=== PATIENT | male | born 1950 | race African-American/Black ===

== ENCOUNTER 2016-09-15 21:16 | Inpatient (IN) | payer MEDICARE, OTHER ==
--- NOTE | ~2016-09-15 | HP ---
History And Physical [place] [id number] [place]. [address] NAME: RASHAD KOENIG : 48 STATUS : ADM IN [facility]#: [id number] AGE: 66 ADM/REG DATE : 09/16/16 MR#: [id number] REPORT SERV DATE: 09/16/16 DICTATED BY: AVIVA FRIAS DATE: 09/16/16 REPORT STATUS : Draft TRANSCRIBED BY: MODL DATE: 09/16/16 DATE OF ADMISSION: 09/16/2016 CHIEF COMPLAINT: Fast heart rate. HISTORY OF PRESENT ILLNESS: The patient is a 66-year-old male, unfortunately with a history of metastatic cholangiocarcinoma with resultant DVT, followed by Dr. Cb Sharma, who presents after having multiple episodes of fever and tachycardia over the last week, decreased activity. The patient has had extensive workup at most recent hospitalization with ID and Hem-Onc. Also, had lactate elevation of 3.3 and procalcitonin of 1.7 last time, who presents in similar episode of tachycardic fever, but does have new leukocytosis on labs, increase lactate elevation and procalcitonin elevations. Symptoms of recurrent episode have been progressively going on for the last week. Symptoms have been constant, moderate severity. The patient did have sharp-type abdominal pain and chest pain that improved after drinking Sprite. It was nonradiating. Has had increased abdominal distention and decreased bowel movements over the last two days. The patient has had fevers, chills, and mild nausea, but no vomiting. Increased weakness. Decreased p.o. intake. Symptoms worsened with exertion and relieved only by mild rest, but overall, reports that if will let him, he would sleep probably 23 hours of the day. Symptoms are still currently present. Fever was noted as high as 103 at home and heart rate as high as 140s. REVIEW OF SYSTEMS: For additional review of systems, GENERAL: Positive for weakness, fevers, and chills. EYES: No eye pain or visual changes. ENT: No ear pain or congestion. NEURO: No headache. Does have seizure history. SKIN: No rashes or bruising. RESPIRATORY: No shortness of breath or dyspnea, but the patient is not doing much exertion. No cough. CV: Mild chest pain versus epigastric pain and tachycardia. GI: Positive for nausea. No vomiting. Does have constipation and abdominal distention. : No dysuria or hematuria. MUSCULOSKELETAL: No myalgias or arthralgias above baseline. ENDO: Increased fatigue. No polyuria. HEME: No bleeding or bruising. IMMUNOLOGIC: No rhinorrhea. PSYCH: No anxiety or confusion. PAST MEDICAL HISTORY: Metastatic cholangiocarcinoma, followed by Dr. Sharma; chronic anemia; seizures; DVT, on Eliquis. SURGICAL HISTORY: Gallbladder removal, colonoscopy, cholecystectomy. SOCIAL HISTORY: . Accompanied by his family members. No smoking, alcohol, or History And Physical [address] [address] NAME: RASHAD KOENIG : [birth year] STATUS : ADM IN [facility]#: [id number] AGE: 66 ADM/REG DATE : 09/16/16 MR#: [id number] REPORT SERV DATE: 09/16/16 DICTATED BY: AVIVA FRIAS DATE: 09/16/16 REPORT STATUS : Draft TRANSCRIBED BY: MODFlori DATE: 09/16/16 illicits. FAMILY HISTORY: Noted for stroke. ALLERGIES: NO KNOWN DRUG ALLERGIES. MEDICATIONS: Tylenol, Eliquis, [place], Zofran, Percocet, phenobarbital, Dilantin, Compazine, Ultram, trospium, metoprolol. EKG: Rate of 120, sinus tachycardia, QTc of 438. PHYSICAL EXAMINATION: VITAL SIGNS: The patient's blood pressure 107/59; temperature 97.2, at current, increased to 101; pulse 122, down to 107; respirations 16; O2 saturations 97% on room air. GENERAL: Elderly, frail, but smiling. EYES: No scleral icterus. EOMI. ENT: Nares patent. Moist mucous membranes. RESPIRATORY: Clear upper lung kaye. Mildly decreased lower lung kaye. CV: Tachycardic. No rubs. Cap refill less than 2 seconds. GI: Large, distended, tympanic with dullness to majority of right side of abdominal wall and tympanic on the left side. No reproducible pain at this time. : Deferred. MUSCULOSKELETAL: Moves all extremities, but does have atrophy of muscle groups. SKIN: Warm and dry. HEME: No bleeding. NEURO: Alert and oriented. No asterixis. 5/5 hand strength, but leg strength approximately 4/5. PSYCH: Appropriate mood and affect. LABORATORY DATA: BMP; sodium 133, potassium 4.0, chloride 95, bicarb 24, BUN and creatinine 17 and 0.98, glucose 158, calcium 8.5. Troponin negative. Magnesium 1.9. WBC count 30.3, previously 9.4. H and H 8.8 and 27.4, previously 7 and 21.1. Platelets 317. INR 1.6, bands 8, lactate 4.3. Urinalysis, negative leukocyte esterase and nitrites. Procalcitonin 3.07. LFTs, AST and ALT within normal limits. Dilantin 8.7, phenobarbital 14.9. T bili 0.4. CT abdomen and pelvis, progressing liver metastatic disease with poorly defined up to 14.8 x 8.3 cm mass, right lobe compared to estimated 10.5 x [address] Increasing hepatomegaly, increasing metastatic tumor nodules measuring up to 1.9 cm diameter extending beyond lower liver margin along the lateral aspect of the medial segment left lobe and right lobe of the liver. Indeterminate 6-mm right middle lobe pulmonary nodule. Prostate enlargement, probable BPH. Recommend correlation with PSA levels. ASSESSMENT AND PLAN: 1. Systemic inflammatory response syndrome. 2. Abdominal pain. 3. Weakness. 4. Lactic acidosis. 5. Cholangiocarcinoma with liver metastasis. History And Physical [address] [address] NAME: RASHAD KOENIG : [birth year] STATUS : ADM IN [facility]#: [id number] AGE: 66 ADM/REG DATE : 09/16/16 MR#: [id number] REPORT SERV DATE: 09/16/16 DICTATED BY: AVIVA FRIAS DATE: 09/16/16 REPORT STATUS : Draft TRANSCRIBED BY: MODL DATE: 09/16/16 6. Seizure history. 7. Anemia. PLAN: 1. SIRS, recently diagnosed with tumor and fever. Per prior records with ID, changed cefepime to vancomycin and Zosyn. Does have new findings of leukocytosis up to 30,000, lactate 4.3, procalcitonin greater than 3 with positive fevers over 101. Cultures and sepsis order set initiated. We will treat infectious etiology until ruled out. Possible related to progressing underlying tumor. These findings were discussed with the patient and family at bedside. 2. Abdominal pain. Enlarging liver with increased constipation. Lactulose since the patient had not been evaluated in multiple days. Pain is resolved, but is still constipation and has distention. 3. Weakness. PT. 4. Lactic acidosis. Serial monitoring. Treat underlying SIRS. IV fluids. Does have abdominal pain. No signs or symptoms of acute incarceration or surgical abdomen at this time. Confirmed with ER doctor. No acute rebound, but we will continue to monitor closely. KUB in a.m. 5. Cholangiocarcinoma with enlarging liver metastasis. Hem-Onc evaluation. 6. Seizure history. On medications. 7. Anemia, currently improved from prior admission. Anticipate greater than two midnight inpatient stay. DDN/MODL Aviva Frias MD / [id number] CC: MD Jose Garcia II, III, D.O.
--- NOTE | ~2016-09-15 | IDS ---
Interim Discharge Summary [facility] [address] [place]. [address] NAME: RASHAD KOENIG : 48 STATUS : ADM IN PAT#: [id number] AGE: 66 ADM/REG DATE : 09/16/16 MR#: [id number] REPORT SERV DATE: 09/27/16 DICTATED BY: CONNIE QUACH II DATE: 09/26/16 REPORT STATUS : Draft TRANSCRIBED BY: MODL DATE: 09/26/16 ADMISSION DATE: 09/16/2016 DISCHARGE DATE: DATE OF INTERIM: 09/26/2016. INTERIM DIAGNOSES: 1. Systemic inflammatory response syndrome, likely secondary to tumor fever. 2. Metastatic cholangiocarcinoma, followed by Dr. Sharma. 3. History of deep vein thrombosis, on Eliquis. 4. Hypotension. 5. Lactic acidosis. 6. Hyperglycemia, steroid induced. 7. Hypoalbuminemia. 8. Severe protein-calorie malnutrition. 9. Seizure disorder. 10.Chronic anemia. 11.Lower extremity edema, likely third-spacing from hypoalbuminemia. CONSULTS: 1. Andrew Arriaga M.D. with Infectious Disease. 2. Cb Sharma M.D. with [facility]. BRIEF HISTORY OF PRESENT ILLNESS: The patient is a 66-year-old male with the above history, who presented to [facility] again due to tachycardia and fever. For detailed history and physical examination, please see Dr. Lizandro De La Rosa's note from 09/16/2016. HOSPITAL COURSE: On admission, the patient had a lactic acid of 4.3 and white blood cell count of 30. He continued to spike fevers up to almost 105 and associated tachycardia in the 150s. The patient was initially started on vancomycin and cefepime. Infectious Disease was consulted, and Dr. Chairez was initially seeing the patient. The urine was unremarkable on admission. Chest x-ray showed clear lungs. CT of abdomen and pelvis showed progressing liver metastatic disease with poorly defined 14.8 x 8 cm mass in the right lobe of the liver compared to estimated size of 10.5 x 7.[address] Also increasing hepatomegaly. Increasing metastatic tumor nodules measuring up to 1.9 cm extending beyond the liver margin along the lateral aspect of the medial segment, left lobe and right lobe of the liver. Despite broad-spectrum antibiotics, the patient continued to spike fevers and his procalcitonin trended up. On the , Dr. Chairez changed the patient's antibiotics to doxycycline, micafungin, and meropenem. This also did not produce any change in the patient's leukocytosis or recurrent fevers. Repeated urinalyses were normal and procalcitonin still high. On the , Dr. Arriaga ended up stopping all the patient's antibiotics. Dr. Sharma went ahead and tried the patient on prednisone to see if that improved his tumor fever; this had minimal effect and currently Dr. Sharma is considering starting the patient on Taxol this Monday. The patient has been off antibiotics since . Of note, yesterday the patient was hypotensive in the 80s, lactic acid had come up to about 3.5, and procalcitonin was rechecked and now up to 18, previously had slowly been Interim Discharge Summary [address] [address] NAME: RASHAD KOENIG : 48 STATUS : ADM IN [facility]#: [id number] AGE: 66 ADM/REG DATE : 09/16/16 MR#: [id number] REPORT SERV DATE: 09/27/16 DICTATED BY: CONNIE QUACH II DATE: 09/26/16 REPORT STATUS : Draft TRANSCRIBED BY: MODFlori DATE: 09/26/16 trending up; last checked on the , was 5.27. The patient has no symptoms abdominally and no new cough or respiratory symptoms. He had a Wallace catheter placed due to minimal urine output. Today, the patient's urine appeared somewhat turbid with lots of debris, so a urinalysis was sent which showed large leukocyte esterase, 62 white blood cells, and greater than 182 red blood cells. Previous urinalysis had been done on the and was normal. Given his lactic acid trends up to 4 today, he is more persistently tachycardic than he has been, procalcitonin markedly higher, and recent hypotension, I am inclined to start the patient on Zosyn until culture comes back negative. Otherwise, given the patient's lower extremity edema with a quite low BNP and hypoalbuminemia, instead of starting fluids we will try the patient on albumin. Otherwise given the patient's metastatic cholangio, according to the family, the patient had previously not wanted to do any more chemotherapy, however, after discussion with his and other family, he decided to try again. He was also considering a trial of immunotherapy in [place]. At this point, his physical status is fairly poor though he is ambulating with some assistance. Regardless, the patient's overall prognosis is likely extremely poor and is still full code. He would likely benefit from a conversation of prognosis and will likely end up needing hospice in the near future. Dr. Sharma was considering asking Palliative Care to get involved, so we will defer hospice conversation to Oncology. Otherwise, the patient remains on Eliquis for his history of DVT. Dr. Mcneal to take over the patient's care starting tomorrow. JEG/MODL Connie Quach II, MD / [id number] CC: MD Jose Garcia II, III, D.O.
--- NOTE | ~2016-09-15 | IDS ---
Interim Discharge Summary [facility] [address] [place]. [address] NAME: RASHAD KOENIG : 48 STATUS : ADM IN PAT#: [id number] AGE: 66 ADM/REG DATE : 09/16/16 MR#: [id number] REPORT SERV DATE: 10/03/16 DICTATED BY: KELSEY MCNEAL DATE: 10/03/16 REPORT STATUS : Draft TRANSCRIBED BY: MODL DATE: 10/03/16 ADMISSION DATE: 09/16/2016 DISCHARGE DATE: Interim summary covers dates 09/27/2016 through 10/03/2016. INITIAL CHIEF COMPLAINT ON ADMISSION: Fast heart rate. CURRENT HOSPITAL DIAGNOSES: 1. Metastatic cholangiocarcinoma. 2. Tumor fever with systemic inflammatory response syndrome. 3. History of deep vein thrombosis, on Eliquis. 4. Acute on chronic anemia due to chemotherapy. 5. Thrombocytopenia due to chemotherapy. 6. Weakness. 7. Goals of care. HOSPITAL COURSE: 1. Metastatic cholangiocarcinoma with elevated lactate. Per discussion with Oncology, they felt that elevated lactate is likely due to metabolism that is altered by liver metastases. The patient got Taxol on 09/28/2016 and then will be due again tomorrow to see if the tumor burden can be reduced to decrease the patient's significant tumor fever and systemic inflammatory response syndrome. Oncology is following along and plans to have a family meeting tomorrow with the patient and his to further address goals of care. Currently, the patient is full code. Dr. Sharma has attempted to address this before, however, family has not been eager to do so. 2. Tumor fever with systemic inflammatory response syndrome. The patient continues to have fevers with associated tachycardia with some episodes of hypotension. He is off IV antibiotics with continuing fevers. We are monitoring. All cultures have been negative. 3. Sinus tachycardia, this has improved. The patient will continue on metoprolol. 4. History of DVT, continue Eliquis. 5. Acute on chronic anemia due to chemotherapy as well as thrombocytopenia due to chemotherapy. Continue to follow. 6. Weakness. PT is following. The patient has been recommended to get up out of bed and he has been sitting in a chair. 7. Goals of care. Again, the patient's oncologist, Dr. Sharma, continues to attempt to address this with the family given his overall poor prognosis. 8. Leukocytosis. Again, this is due to tumor fever with underlying SIRS. The patient's white count is today finally trending down. We will continue to follow labs. 9. Hyperglycemia, steroid induced. Continue to follow. 10.Severe protein-calorie malnutrition, encouraged p.o. 11.History of seizure disorder, continuing outpatient regimen. Interim Discharge Summary [place] [address] [place]. [address] NAME: RASHAD KOENIG : 48 STATUS : ADM IN PAT#: [id number] AGE: 66 ADM/REG DATE : 09/16/16 MR#: [id number] REPORT SERV DATE: 10/03/16 DICTATED BY: KELSEY MCNEAL DATE: 10/03/16 REPORT STATUS : Draft TRANSCRIBED BY: MANDO DATE: 10/03/16 KAI/MANDO Kelsey Mcneal MD / [id number] CC: MD Jose Mcqueen III, D.O.
--- NOTE | ~2016-09-15 | OP ---
Record Of Operation [facility] [address] [place]. [address] NAME: RASHAD KOENIG : 48 STATUS : ADM IN PAT#: [id number] AGE: 66 ADM/REG DATE : 09/16/16 MR#: [id number] REPORT SERV DATE: 10/07/16 DICTATED BY: KUSHAL BURTON DATE: 10/07/16 REPORT STATUS : Draft TRANSCRIBED BY: MODL DATE: 10/07/16 DATE OF PROCEDURE: 10/07/2016 PROCEDURE: Radial A-line insertion. INDICATION FOR PROCEDURE: Shock. POSTOPERATIVE DIAGNOSIS: Shock. PROCEDURE NOTE: Right hand was prepped and draped in sterile fashion. Using palpation, we were able to palpate the radial artery and finder needle was able to identify this. We placed a guidewire and catheter into the region with return of bright red blood. This was connected to the arterial line and secured in standard fashion. We were able to get adequate blood pressure measurements. HFQ/MANDO Kushal Burton MD / [id number] CC: MD Jose Garcia II, III, [place].OCathie
--- NOTE | ~2016-09-15 | CN ---
Consultation Report [facility] [address] [facility] [place]. [address] NAME: RASHAD AKHTAR : 48 STATUS : ADM IN [facility]#: [id number] AGE: 66 ADM/REG DATE : 09/16/16 MR#: [id number] REPORT SERV DATE: 10/07/16 DICTATED BY: KUSHAL BURTON DATE: 10/07/16 REPORT STATUS : Draft TRANSCRIBED BY: MODL DATE: 10/07/16 CONSULT DATE OF CONSULTATION: 10/07/2016 REASON FOR CONSULTATION: Hypotension and shock. CHIEF COMPLAINT: Unable to obtain due to the patient's current medical status. HISTORY OF PRESENT ILLNESS: Mr. Akhtar is a 66-year-old gentleman with a past medical history of cholangiocarcinoma. He has been admitted to the hospital since 09/15/2016. Issues throughout the hospitalization are considered to be systemic inflammatory response, likely tumor fever, metastatic cholangiocarcinoma, and deep vein thrombosis with lactic acidosis and malnutrition. The patient was noted to have a drop in hemoglobin from 7.4 to 6.3 yesterday, the patient received blood products yesterday. However this morning, the patient's blood pressure acutely went from the 150s down to the 80s and 60s. His lactate climbed to 11.1. He started having significant amount of a GI bleed with dark blood coming out of the NG tube. He was promptly transferred to the intensive care unit. In the intensive care unit throughout the day, we have placed him on Levophed support. This has improved after getting blood products and IV fluids. His hemoglobin has been stable around 8. He was not noted to be acidotic by the ABG, but did have a lactate that was elevated. His bicarbonate has been slowly dropping with worsening kidney function. PAST MEDICAL HISTORY: Metastatic cholangiocarcinoma, CT scan from June to August shows significant worsening of his cholangiocarcinoma on liver view of the CT scan of the abdomen; history of seizures; DVT, on chronic anticoagulation; chronic anemia; pain. ALLERGIES: NO KNOWN DRUG ALLERGIES. MEDICATIONS: Medication list reviewed. FAMILY HISTORY: Other family members with stroke. SOCIAL HISTORY: The patient is currently , has very active family at the bedside. No smoking or alcohol. REVIEW OF SYSTEMS: Unable to obtain complete review of systems due to current medical status. PHYSICAL EXAMINATION: VITAL SIGNS: The patient is afebrile, heart rate currently in the 150s, respiratory rate 18 to 22, oxygen saturation currently greater than 95% on room air. Blood pressure currently 115 systolic, improved from the morning of a systolic of around 60. GENERAL: The patient is lethargic, arousable, improving throughout the day. Consultation Report [place] [id number] [place]. [address] NAME: RASHAD AKHTAR : 48 STATUS : ADM IN PAT#: [id number] AGE: 66 ADM/REG DATE : 09/16/16 MR#: [id number] REPORT SERV DATE: 10/07/16 DICTATED BY: KUSHAL BURTON DATE: 10/07/16 REPORT STATUS : Draft TRANSCRIBED BY: MODL DATE: 10/07/16 NECK: Supple, no JVD. PULMONARY: Clear to auscultation bilaterally. CARDIAC: Tachycardic, no murmurs. ABDOMEN: No bowel sounds, [id number] abdominal pain, no guarding or rebound, abdomen is soft. EXTREMITIES: Extremity is warm to touch, peripheral pulses noted in the upper extremity. LABORATORY EXAMINATION: Hemoglobin around 8, INR 1.9, potassium 5.7, bicarb 19, BUN 46, lactate 11.1, albumin 1.4, bilirubin 2.0, arterial blood gas is essentially normal. RADIOGRAPHIC STUDIES: As noted above. ASSESSMENT AND PLAN: Mr. Akhtar is a 66-year-old gentleman with a past medical history noted above, who came to the intensive care unit in shock, unclear of the etiology. However, he responded to IV fluids tremendously. 1. Gastrointestinal bleed: The patient has received blood products 24 hours ago. He is having stable hemoglobin at least for the last 24 hours; however, his hemoglobin went from 9.5 to 7.9, and we will need to continue to check CBC, next blood checked is at 4 a.m. 2. Shock: There has been a significant improvement, the patient is on vasopressor and Levophed. Levophed is down to 2 from 20. Holding beta-erick therapy. We will check a lactate. 3. Tachycardia: Unclear of the etiology, most likely hemorrhagic shock and postinflammatory state. Ultrasound did not show any dilated right ventricle, decided not to do a CT scan of the chest, as he most definitely will have contrast-induced nephropathy and furthermore, anticoagulation currently with his gastrointestinal bleed would not be beneficial. 4. Thrombocytopenia: Unclear whether this is related to coagulation or just worsening state. 5. Hyperkalemia: The patient has been noted to be hyperkalemic here for the last 24 hours, potassium has stabilized around 5.7. We will continue to monitor. 6. Acute kidney injury: The patient's kidney function is worsening slowly, but the patient is still making urine. 7. Hyperbilirubinemia: Most likely secondary to the patient's cholangiocarcinoma and shock state. 8. Lactic acid: Most likely secondary to his shock state, we will check another lactic acid now, the patient may have had ischemic bowel, clearly not a surgical candidate, and will support with IV fluids. 9. Goals of care: I have had two family meetings today with regard to goals of care, family states that the patient would like to be resuscitated, they state that he would like to live and are hoping for a miracle. We talked about his overall health, expectations; however, I am concerned with the fact that the patient has metastatic cholangiocarcinoma, the beginning of what seems to be multisystem organ failure in this patient, who has unresectable disease. However, we discussed that at this moment in time, the patient is full code, further family discussions are needed, they are open to Consultation Report [address] [place]. [address] NAME: RASHAD AKHTAR : 48 STATUS : ADM IN [facility]#: [id number] AGE: 66 ADM/REG DATE : 09/16/16 MR#: [id number] REPORT SERV DATE: 10/07/16 DICTATED BY: KUSHAL BURTON DATE: 10/07/16 REPORT STATUS : Draft TRANSCRIBED BY: MODL DATE: 10/07/16 palliative care, but as far as a do not resuscitate or do not intubate status, they would like everything to be done in hopes of a miracle and a cure for his overall condition. 10.Critical care time: 85 minutes, this is in addition to any procedures and includes family meetings. HFQ/MANDO Kushal Burton MD / [id number] CC: MD Jose Garcia II, III, D.O.
--- NOTE | ~2016-09-15 | DS ---
Discharge Summary [place] [id number] [facility] [place]. [address] NAME: RASHAD KOENIG : 48 STATUS : DIS IN PAT#: [id number] AGE: 66 ADM/REG DATE : 09/16/16 MR#: [id number] REPORT SERV DATE: 10/16/16 DICTATED BY: KELSEY MCNEAL DATE: 10/15/16 REPORT STATUS : Draft TRANSCRIBED BY: MODL DATE: 10/15/16 ADMISSION DATE: 09/16/2016 DISCHARGE DATE: 10/15/2016 CHIEF COMPLAINT ON ADMISSION: Fast heart rate. DISCHARGE DIAGNOSES: 1. Metastatic cholangiocarcinoma. 2. Tumor fever status post Taxol. 3. Gastrointestinal bleed. Family opted not to scope. 4. Escherichia coli urinary tract infection. 5. Atrial fibrillation with intermittent rapid ventricular response. 6. History of deep vein thrombosis, on Eliquis. 7. Dyahl-in-wvbqdlw anemia with recent acute blood loss anemia due to gastrointestinal bleed. DISPOSITION: Home with [facility]. HISTORY OF PRESENT ILLNESS: Please see full H and P for details regarding initial presentation by Dr. De La Rosa. HOSPITAL COURSE: Please see interim summary by Dr. Diop on 09/26/2016 and then myself on 10/03/2016. After this 10/03/2016 date, the patient did go to the ICU for GI bleed with shock, presumed hemorrhagic from GI bleed. He was seen by Critical Care and then transferred out couple of days later. Dr. Burton was the research affiliate who saw him initially. Family did opt not to pursue a workup for his GI bleed. He was transferred back out to the floor. His hemoglobin did stabilize. He was continued on a PPI as well as Carafate. In regard to his E coli urinary tract infection, he is currently on amoxicillin. He should have completed this course by the time he gets discharged. In regard to his metastatic cholangiocarcinoma, the patient had long discussion with Dr. Cb Sharma and myself and was made DNR/DNI and now is transitioning to home with hospice. Disposition is to his home with hospice. Discharge med reconciliation will be per [facility]. Time spent on this discharge including discussion with the patient and is greater than 30 minutes. DNK/MODL Kelsey Mcneal MD / [id number] CC: Discharge Summary [address] [address] NAME: RASHAD KOENIG : 48 STATUS : DIS IN PAT#: [id number] AGE: 66 ADM/REG DATE : 09/16/16 MR#: [id number] REPORT SERV DATE: 10/16/16 DICTATED BY: KELSEY MCNEAL DATE: 10/15/16 REPORT STATUS : Draft TRANSCRIBED BY: MODL DATE: 10/15/16 MD Jose Mcqueen III, D.OCathie
[2016-09-15 17:15] LABS: BASOPHILS 0 %; BASOPHILS ABSOLUTE 0.01 10/3/uL (0.0-0.16); EOSINOPHILS 0.5 %; EOSINOPHILS ABSOLUTE 0.15 10/3/uL (0.0-0.53); IMMATURE GRANULOCYTES 0.9 %; IMMATURE GRANULOCYTES ABSOLUTE 0.26 10/3/uL (0.0-0.11); LYMPHOCYTES 14.8 %; LYMPHOCYTES ABSOLUTE 4.49 10/3/uL (0.67-4.30); MEAN CORPUS HGB CONC 32.1 g/dL (32.0-36.0); MEAN CORPUSCULAR HEMOGLOB 28.5 pg (26.0-34.0); MEAN PLATELET VOLUME 8.7 fL (9.2-13.0); MONOCYTES 5.2 %; MONOCYTES ABSOLUTE 1.58 10/3/uL (0.21-1.20); NEUTROPHILS 78.6 %; NEUTROPHILS ABSOLUTE 23.76 10/3/uL (2.02-8.40); PLATELET COUNT 317 10/3/uL (150-400); RBC DISTRIBUTION WIDTH 18.1 % (12.0-16.0)
[2016-09-15 17:18] LABS: ER CBC TAT 0 Hrs 09 Mins; WHITE BLOOD CELLS 30.3 10/3/uL (4.5-10.5)
[2016-09-15 17:19] LABS: HEMATOCRIT 27.4 % (40.0-51.0); HEMOGLOBIN 8.8 g/dL (13.6-17.8); MANUAL DIFF NO %; MEAN CORPUSCULAR VOLUME 88.7 fL (80-100); RED CELL COUNT 3.09 10/6/uL (4.7-6.1)
[2016-09-15 17:21] LABS: INTERNATIONAL NORMAL RATI 1.6 UNITS (-); PARTIAL THROMBO TIME 37.1 SEC (22.5-37.2); PROTIME (NOT ORD) 18.9 SEC (12.0-14.5)
[2016-09-15 17:30] LABS: CALCIUM, SERUM 8.5 MG/DL (8.5-10.4); CHEST PAIN PROFILE TAT 0 Hrs 21 Mins; CHLORIDE, SERUM 95 MMOL/L (96-112); CO2 (CARBON DIOXIDE) 24 MMOL/L (24-34); CREATININE 0.98 MG/DL (0.70-1.30); GFR AFRICAN AMERICAN 92 ML/MIN (>=60); GFR NON AFRICAN AMERICAN 79 ML/MIN (>=60); GLUCOSE, SERUM 158 MG/DL (60-99); SODIUM, SERUM 133 MMOL/L (135-148); TROPONIN I <0.02 NG/ML (<0.05)
[2016-09-15 17:31] LABS: BUN (BLOOD UREA NITROGEN) 17 MG/DL (6-23)
[2016-09-15 17:39] LABS: ANISOCYTOSIS 1+ (5-10/OIF) (0-5/OIF); BAND NEUTROPHILS 8 %; EOSINOPHILS 1 %; ER DIFF TAT 0 Hrs 30 Mins; LYMPHOCYTES 15 %; LYMPHOCYTES ABSOLUTE (CALC) 4.55 10/3/uL (0.67-4.30); METAMYELOCYTES 1 %; MONOCYTES 8 %; MONOCYTES ABSOLUTE (CALC) 2.42 10/3/uL (0.21-1.20); NEUTROPHILS ABSOLUTE (CALC) 22.73 10/3/uL (2.02-8.40); PLATELET ESTIMATE ADQ (ADEQUATE); SEGMENTED NEUTROPHIL (0) 67 %; TOTAL NUCLEATED CELLS 100
[~2016-09-15 21:16] MED LIST: ACET500CAP PO; ALEVE220 MG PO; ANUSOL HC SUPP1 SUPP PR; CHEMO THERAPY IV; CISPLATIN IV; COMP5B PO; D100; D100 PO; DETROLLA4 PO; ELIQUIS 5 MG TAB5 MG PO; GEMCITABINE IV; LEVAQUIN750 MG PO; MIRALAXPKT PO; NORCO1 TA2 PO; P5 PO; PB60 PO; PERCOCET 10/3251 TAB PO; PHENOBARB32.4 MG; TESTOSTERONE; ULTRAM50 PO; ZOFRAN8 PO
[2016-09-15] MEDS ORDERED: ACET500CAP PO (21:52)
[2016-09-15] MEDS ORDERED: ELIQUIS 5 MG TAB5 MG PO (21:53)
[2016-09-15] MEDS ORDERED: NORCO1 TA2 PO (21:54)
[2016-09-15] MEDS ORDERED: ZOFRAN8 PO (21:55)
[2016-09-15] MEDS ORDERED: PERCOCET 10/3251 TAB PO (21:55)
[2016-09-15] MEDS ORDERED: PB60 PO (21:55)
[2016-09-15] MEDS ORDERED: D100 PO (21:55)
[2016-09-15] MEDS ORDERED: COMP5B PO (21:57)
[2016-09-15] MEDS ORDERED: LOP25 PO (21:59)
[2016-09-15] MEDS ORDERED: SANCTURA20 MG PO (21:59)
[2016-09-15] MEDS ORDERED: ULTRAM50 PO (21:59)
[2016-09-15 22:13] LABS: ALBUMIN 1.8 G/DL (3.5-5.0); DILANTIN (PHENYTOIN) 8.7 MCG/ML (10.0-20.0); DIRECT BILIRUBIN 0.2 MG/DL (0.0-0.4); INDIRECT BILIRUBIN(NOT ORDER) 0.2 MG/DL (0.1-0.9); PHENOBARBITAL 14.9 MCG/ML (15.0-40.0); TOTAL BILIRUBIN 0.4 MG/DL (0-1.2); TOTAL PROTEIN 7.5 G/DL (6.0-8.5)
[2016-09-15 22:14] LABS: LACTATE 4.3 MMOL/L (0.3-2.4)
[2016-09-15 22:27] LABS: WBC (NOT ORDERED) (RFLEX) 0 (0-5)
[2016-09-15 22:37] LABS: ASCORBIC ACID (UR NOT ORDER) 40 (NEG); BILIRUBIN, URINE NEGATIVE (NEG); ER URINALYSIS TAT 0 Hrs 11 Mins; KETONE, URINE NEGATIVE (NEG); LEUKOCYTE ESTERASE(NOT OR NEG (NEG); NITRITE (URINE) NEG (NEG)
[2016-09-15 22:46] LABS: PROCALCITONIN 3.07 ng/mL (<0.5)
[2016-09-16 08:33] LABS: HEMOGLOBIN 7.8 g/dL (13.6-17.8); MEAN CORPUS HGB CONC 32.1 g/dL (32.0-36.0); MEAN CORPUSCULAR HEMOGLOB 28.6 pg (26.0-34.0); MEAN PLATELET VOLUME 8.3 fL (9.2-13.0); PLATELET COUNT 251 10/3/uL (150-400); RBC DISTRIBUTION WIDTH 18.1 % (12.0-16.0); RED CELL COUNT 2.73 10/6/uL (4.7-6.1)
[2016-09-16 08:35] LABS: HEMATOCRIT 24.3 % (40.0-51.0); MANUAL DIFF YES %; WHITE BLOOD CELLS 25.7 10/3/uL (4.5-10.5)
[2016-09-16 08:52] LABS: A/G RATIO 0.3 (0.7-1.9); ALBUMIN 1.6 G/DL (3.5-5.0); ALKALINE PHOSPHATASE 147 U/L (45-117); BUN (BLOOD UREA NITROGEN) 15 MG/DL (6-23); CHLORIDE, SERUM 97 MMOL/L (96-112); CO2 (CARBON DIOXIDE) 27 MMOL/L (24-34); CREATININE 0.74 MG/DL (0.70-1.30); GFR AFRICAN AMERICAN 111 ML/MIN (>=60); GFR NON AFRICAN AMERICAN 95 ML/MIN (>=60); GLOBULIN 5.2 G/DL (2.5-4.1); GLUCOSE, SERUM 141 MG/DL (60-99); POTASSIUM, SERUM 3.8 MMOL/L (3.5-5.3); SGOT(AST) 24 U/L (5-40); SGPT(ALT) 18 U/L (5-65); SODIUM, SERUM 135 MMOL/L (135-148); TOTAL BILIRUBIN 0.4 MG/DL (0-1.2); TOTAL PROTEIN 6.8 G/DL (6.0-8.5)
[2016-09-16 09:01] LABS: ANISOCYTOSIS 1+ (5-10/OIF) (0-5/OIF); BAND NEUTROPHILS 3 %; IMMATURE GRANS ABSOLUTE (CALC) 0.26 10/3/uL (0.0-0.11); LYMPHOCYTES 12 %; LYMPHOCYTES ABSOLUTE (CALC) 3.08 10/3/uL (0.67-4.30); METAMYELOCYTES 1 %; MONOCYTES 5 %; MONOCYTES ABSOLUTE (CALC) 1.29 10/3/uL (0.21-1.20); NEUTROPHILS ABSOLUTE (CALC) 21.07 10/3/uL (2.02-8.40); PLATELET ESTIMATE ADQ (ADEQUATE); SEGMENTED NEUTROPHIL (0) 79 %; TOTAL NUCLEATED CELLS 100
[2016-09-16 09:42] LABS: PROCALCITONIN 2.61 ng/mL (<0.5)
[2016-09-17 07:11] LABS: HEMOGLOBIN 8.1 g/dL (13.6-17.8); MEAN CORPUS HGB CONC 32.4 g/dL (32.0-36.0); MEAN CORPUSCULAR HEMOGLOB 28.6 pg (26.0-34.0); MEAN CORPUSCULAR VOLUME 88.3 fL (80-100); MEAN PLATELET VOLUME 8.9 fL (9.2-13.0); PLATELET COUNT 288 10/3/uL (150-400); RBC DISTRIBUTION WIDTH 18.1 % (12.0-16.0); RED CELL COUNT 2.83 10/6/uL (4.7-6.1)
[2016-09-17 07:18] LABS: BUN (BLOOD UREA NITROGEN) 12 MG/DL (6-23); CALCIUM, SERUM 7.9 MG/DL (8.5-10.4); CHLORIDE, SERUM 95 MMOL/L (96-112); CO2 (CARBON DIOXIDE) 26 MMOL/L (24-34); CREATININE 0.76 MG/DL (0.70-1.30); GFR AFRICAN AMERICAN 109 ML/MIN (>=60); GFR NON AFRICAN AMERICAN 94 ML/MIN (>=60); GLUCOSE, SERUM 148 MG/DL (60-99); POTASSIUM, SERUM 3.9 MMOL/L (3.5-5.3); SODIUM, SERUM 133 MMOL/L (135-148)
[2016-09-17 07:24] LABS: MANUAL DIFF YES %; WHITE BLOOD CELLS 26.5 10/3/uL (4.5-10.5)
[2016-09-17 07:40] LABS: ANISOCYTOSIS 1+ (5-10/OIF) (0-5/OIF); BAND NEUTROPHILS 4 %; EOSINOPHILS 1 %; EOSINOPHILS ABSOLUTE (CALC) 0.27 10/3/uL (0.0-0.53); LYMPHOCYTES 8 %; LYMPHOCYTES ABSOLUTE (CALC) 2.12 10/3/uL (0.67-4.30); MONOCYTES 2 %; MONOCYTES ABSOLUTE (CALC) 0.53 10/3/uL (0.21-1.20); NEUTROPHILS ABSOLUTE (CALC) 23.59 10/3/uL (2.02-8.40); PLATELET ESTIMATE ADQ (ADEQUATE); SEGMENTED NEUTROPHIL (0) 85 %; TOTAL NUCLEATED CELLS 100
[2016-09-17 17:58] LABS: WBC (NOT ORDERED) (RFLEX) 0 (0-5)
[2016-09-17 18:11] LABS: ASCORBIC ACID (UR NOT ORDER) 40 (NEG); BILIRUBIN, URINE NEGATIVE (NEG); KETONE, URINE NEGATIVE (NEG); LEUKOCYTE ESTERASE(NOT OR NEG (NEG)
[2016-09-18 06:29] LABS: HEMATOCRIT 23.5 % (40.0-51.0); HEMOGLOBIN 7.7 g/dL (13.6-17.8); MEAN CORPUS HGB CONC 32.8 g/dL (32.0-36.0); MEAN CORPUSCULAR HEMOGLOB 28.9 pg (26.0-34.0); MEAN CORPUSCULAR VOLUME 88.3 fL (80-100); MEAN PLATELET VOLUME 8.7 fL (9.2-13.0); PLATELET COUNT 283 10/3/uL (150-400); RBC DISTRIBUTION WIDTH 18.1 % (12.0-16.0); RED CELL COUNT 2.66 10/6/uL (4.7-6.1)
[2016-09-18 06:30] LABS: MANUAL DIFF YES %; WHITE BLOOD CELLS 27.4 10/3/uL (4.5-10.5)
[2016-09-18 06:39] LABS: BUN (BLOOD UREA NITROGEN) 13 MG/DL (6-23); CALCIUM, SERUM 7.9 MG/DL (8.5-10.4); CHLORIDE, SERUM 97 MMOL/L (96-112); CO2 (CARBON DIOXIDE) 27 MMOL/L (24-34); CREATININE 0.74 MG/DL (0.70-1.30); GFR AFRICAN AMERICAN 111 ML/MIN (>=60); GFR NON AFRICAN AMERICAN 95 ML/MIN (>=60); GLUCOSE, SERUM 153 MG/DL (60-99); POTASSIUM, SERUM 3.7 MMOL/L (3.5-5.3); SODIUM, SERUM 133 MMOL/L (135-148)
[2016-09-18 06:54] LABS: ANISOCYTOSIS 1+ (5-10/OIF) (0-5/OIF); BAND NEUTROPHILS 9 %; EOSINOPHILS 2 %; EOSINOPHILS ABSOLUTE (CALC) 0.55 10/3/uL (0.0-0.53); LYMPHOCYTES 9 %; LYMPHOCYTES ABSOLUTE (CALC) 2.47 10/3/uL (0.67-4.30); MONOCYTES 3 %; MONOCYTES ABSOLUTE (CALC) 0.82 10/3/uL (0.21-1.20); NEUTROPHILS ABSOLUTE (CALC) 23.56 10/3/uL (2.02-8.40); PLATELET ESTIMATE ADQ (ADEQUATE); SEGMENTED NEUTROPHIL (0) 77 %; TOTAL NUCLEATED CELLS 100
[2016-09-18 06:55] LABS: TOXIC GRANULATION 1+
[2016-09-18 07:12] LABS: PROCALCITONIN 2.27 ng/mL (<0.5)
[2016-09-19 05:22] LABS: BASOPHILS 0.1 %; BASOPHILS ABSOLUTE 0.04 10/3/uL (0.0-0.16); EOSINOPHILS 0.9 %; EOSINOPHILS ABSOLUTE 0.24 10/3/uL (0.0-0.53); HEMATOCRIT 24.4 % (40.0-51.0); HEMOGLOBIN 7.9 g/dL (13.6-17.8); IMMATURE GRANULOCYTES 1.2 %; IMMATURE GRANULOCYTES ABSOLUTE 0.32 10/3/uL (0.0-0.11); LYMPHOCYTES 11.2 %; LYMPHOCYTES ABSOLUTE 3.09 10/3/uL (0.67-4.30); MEAN CORPUS HGB CONC 32.4 g/dL (32.0-36.0); MEAN CORPUSCULAR HEMOGLOB 28.6 pg (26.0-34.0); MEAN CORPUSCULAR VOLUME 88.4 fL (80-100); MEAN PLATELET VOLUME 8.4 fL (9.2-13.0); MONOCYTES 7.9 %; MONOCYTES ABSOLUTE 2.19 10/3/uL (0.21-1.20); NEUTROPHILS 78.7 %; PLATELET COUNT 288 10/3/uL (150-400); RED CELL COUNT 2.76 10/6/uL (4.7-6.1)
[2016-09-19 05:25] LABS: MANUAL DIFF YES %; WHITE BLOOD CELLS 27.7 10/3/uL (4.5-10.5)
[2016-09-19 05:34] LABS: ALBUMIN 1.5 G/DL (3.5-5.0); ALKALINE PHOSPHATASE 157 U/L (45-117); BUN (BLOOD UREA NITROGEN) 13 MG/DL (6-23); CALCIUM, SERUM 7.9 MG/DL (8.5-10.4); CHLORIDE, SERUM 98 MMOL/L (96-112); CO2 (CARBON DIOXIDE) 27 MMOL/L (24-34); CREATININE 0.71 MG/DL (0.70-1.30); DIRECT BILIRUBIN 0.3 MG/DL (0.0-0.4); GFR AFRICAN AMERICAN 113 ML/MIN (>=60); GFR NON AFRICAN AMERICAN 97 ML/MIN (>=60); GLUCOSE, SERUM 150 MG/DL (60-99); INDIRECT BILIRUBIN(NOT ORDER) 0.2 MG/DL (0.1-0.9); SGOT(AST) 28 U/L (5-40); SGPT(ALT) 18 U/L (5-65); SODIUM, SERUM 135 MMOL/L (135-148); TOTAL BILIRUBIN 0.5 MG/DL (0-1.2); TOTAL PROTEIN 6.9 G/DL (6.0-8.5)
[2016-09-19 05:51] LABS: ANISOCYTOSIS 1+ (5-10/OIF) (0-5/OIF); BAND NEUTROPHILS 3 %; LYMPHOCYTES 10 %; LYMPHOCYTES ABSOLUTE (CALC) 2.77 10/3/uL (0.67-4.30); MONOCYTES 3 %; MONOCYTES ABSOLUTE (CALC) 0.83 10/3/uL (0.21-1.20); RBC MORPHOLOGY ABN (NORMAL); SEGMENTED NEUTROPHIL (0) 84 %; TOTAL NUCLEATED CELLS 100
[2016-09-20 04:51] LABS: HEMOGLOBIN 7.6 g/dL (13.6-17.8); MEAN CORPUSCULAR HEMOGLOB 29.1 pg (26.0-34.0); MEAN CORPUSCULAR VOLUME 88.1 fL (80-100); MEAN PLATELET VOLUME 8.4 fL (9.2-13.0); PLATELET COUNT 254 10/3/uL (150-400); RBC DISTRIBUTION WIDTH 17.9 % (12.0-16.0); RED CELL COUNT 2.61 10/6/uL (4.7-6.1)
[2016-09-20 04:54] LABS: MANUAL DIFF YES %; WHITE BLOOD CELLS 27.1 10/3/uL (4.5-10.5)
[2016-09-20 05:37] LABS: BAND NEUTROPHILS 10 %; EOSINOPHILS 2 %; EOSINOPHILS ABSOLUTE (CALC) 0.54 10/3/uL (0.0-0.53); LYMPHOCYTES 15 %; LYMPHOCYTES ABSOLUTE (CALC) 4.07 10/3/uL (0.67-4.30); MONOCYTES 1 %; MONOCYTES ABSOLUTE (CALC) 0.27 10/3/uL (0.21-1.20); NEUTROPHILS ABSOLUTE (CALC) 22.22 10/3/uL (2.02-8.40); PLATELET ESTIMATE ADQ (ADEQUATE); SEGMENTED NEUTROPHIL (0) 72 %; TOTAL NUCLEATED CELLS 100
[2016-09-20 05:38] LABS: ANISOCYTOSIS 1+ (5-10/OIF) (0-5/OIF); HYPOCHROMIA 1+ (3-10/OIF) (0-2/OIF); STOMATOCYTES 1+ (3-10/OIF) (0-2/OIF)
[2016-09-21 11:08] LABS: BUN (BLOOD UREA NITROGEN) 17 MG/DL (6-23); CHLORIDE, SERUM 98 MMOL/L (96-112); CO2 (CARBON DIOXIDE) 30 MMOL/L (24-34); GFR AFRICAN AMERICAN 113 ML/MIN (>=60); GFR NON AFRICAN AMERICAN 98 ML/MIN (>=60); GLUCOSE, SERUM 113 MG/DL (60-99); SODIUM, SERUM 137 MMOL/L (135-148)
[2016-09-21 12:15] LABS: HEMOGLOBIN 8.8 g/dL (13.6-17.8); MEAN CORPUS HGB CONC 32.4 g/dL (32.0-36.0); MEAN CORPUSCULAR HEMOGLOB 29.3 pg (26.0-34.0); MEAN CORPUSCULAR VOLUME 90.7 fL (80-100); MEAN PLATELET VOLUME 8.7 fL (9.2-13.0); PLATELET COUNT 282 10/3/uL (150-400); RBC DISTRIBUTION WIDTH 18.2 % (12.0-16.0)
[2016-09-21 12:17] LABS: HEMATOCRIT 27.2 % (40.0-51.0); MANUAL DIFF YES %
[2016-09-21 12:18] LABS: PROCALCITONIN 5.27 ng/mL (<0.5)
[2016-09-21 12:40] LABS: PHOSPHORUS, SERUM 2.7 MG/DL (2.5-4.5)
[2016-09-21 12:55] LABS: BAND NEUTROPHILS 15 %; IMMATURE GRANS ABSOLUTE (CALC) 0.93 10/3/uL (0.0-0.11); LYMPHOCYTES 15 %; LYMPHOCYTES ABSOLUTE (CALC) 4.65 10/3/uL (0.67-4.30); METAMYELOCYTES 2 %; MONOCYTES 5 %; MONOCYTES ABSOLUTE (CALC) 1.55 10/3/uL (0.21-1.20); MYELOCYTES 1 %; NEUTROPHILS ABSOLUTE (CALC) 23.87 10/3/uL (2.02-8.40); PLATELET ESTIMATE ADQ (ADEQUATE); SEGMENTED NEUTROPHIL (0) 62 %; TOTAL NUCLEATED CELLS 100
[2016-09-21 12:56] LABS: ANISOCYTOSIS 1+ (5-10/OIF) (0-5/OIF); MACROCYTES 1+ (5-10/OIF) (0-5/OIF)
[2016-09-22 04:56] LABS: HEMATOCRIT 24.6 % (40.0-51.0); HEMOGLOBIN 7.9 g/dL (13.6-17.8); MEAN CORPUS HGB CONC 32.1 g/dL (32.0-36.0); MEAN CORPUSCULAR HEMOGLOB 28.7 pg (26.0-34.0); MEAN CORPUSCULAR VOLUME 89.5 fL (80-100); MEAN PLATELET VOLUME 8.9 fL (9.2-13.0); PLATELET COUNT 262 10/3/uL (150-400); RBC DISTRIBUTION WIDTH 18.4 % (12.0-16.0); RED CELL COUNT 2.75 10/6/uL (4.7-6.1); WHITE BLOOD CELLS 28.7 10/3/uL (4.5-10.5)
[2016-09-22 04:57] LABS: MANUAL DIFF YES %
[2016-09-22 05:05] LABS: BUN (BLOOD UREA NITROGEN) 18 MG/DL (6-23); CALCIUM, SERUM 7.8 MG/DL (8.5-10.4); CHLORIDE, SERUM 103 MMOL/L (96-112); CO2 (CARBON DIOXIDE) 27 MMOL/L (24-34); GFR AFRICAN AMERICAN 113 ML/MIN (>=60); GFR NON AFRICAN AMERICAN 98 ML/MIN (>=60); GLUCOSE, SERUM 139 MG/DL (60-99); POTASSIUM, SERUM 3.9 MMOL/L (3.5-5.3); SODIUM, SERUM 141 MMOL/L (135-148)
[2016-09-22 05:27] LABS: BAND NEUTROPHILS 11 %; LYMPHOCYTES 14 %; LYMPHOCYTES ABSOLUTE (CALC) 4.02 10/3/uL (0.67-4.30); MONOCYTES 4 %; MONOCYTES ABSOLUTE (CALC) 1.15 10/3/uL (0.21-1.20); NEUTROPHILS ABSOLUTE (CALC) 23.53 10/3/uL (2.02-8.40); SEGMENTED NEUTROPHIL (0) 71 %; TOTAL NUCLEATED CELLS 100
[2016-09-22 05:28] LABS: ANISOCYTOSIS 1+ (5-10/OIF) (0-5/OIF); PLATELET ESTIMATE ADQ (ADEQUATE); POLYCHROMASIA 1+ (2-5/OIF) (0-1/OIF)
[2016-09-23 06:21] LABS: HEMATOCRIT 23.7 % (40.0-51.0); HEMOGLOBIN 7.6 g/dL (13.6-17.8); MEAN CORPUS HGB CONC 32.1 g/dL (32.0-36.0); MEAN CORPUSCULAR HEMOGLOB 28.5 pg (26.0-34.0); MEAN CORPUSCULAR VOLUME 88.8 fL (80-100); MEAN PLATELET VOLUME 9.1 fL (9.2-13.0); PLATELET COUNT 217 10/3/uL (150-400); RBC DISTRIBUTION WIDTH 18.7 % (12.0-16.0); RED CELL COUNT 2.67 10/6/uL (4.7-6.1)
[2016-09-23 06:24] LABS: MANUAL DIFF YES %; WHITE BLOOD CELLS 33.6 10/3/uL (4.5-10.5)
[2016-09-23 06:34] LABS: BUN (BLOOD UREA NITROGEN) 20 MG/DL (6-23); CALCIUM, SERUM 7.7 MG/DL (8.5-10.4); CHLORIDE, SERUM 102 MMOL/L (96-112); CO2 (CARBON DIOXIDE) 27 MMOL/L (24-34); GFR AFRICAN AMERICAN 102 ML/MIN (>=60); GFR NON AFRICAN AMERICAN 88 ML/MIN (>=60); POTASSIUM, SERUM 3.6 MMOL/L (3.5-5.3); SODIUM, SERUM 138 MMOL/L (135-148)
[2016-09-23 06:36] LABS: GLUCOSE, SERUM 244 MG/DL (60-99)
[2016-09-23 07:26] LABS: ANISOCYTOSIS 1+ (5-10/OIF) (0-5/OIF); BAND NEUTROPHILS 16 %; IMMATURE GRANS ABSOLUTE (CALC) 0.67 10/3/uL (0.0-0.11); LYMPHOCYTES 10 %; LYMPHOCYTES ABSOLUTE (CALC) 3.36 10/3/uL (0.67-4.30); MACROCYTES 1+ (5-10/OIF) (0-5/OIF); METAMYELOCYTES 2 %; MONOCYTES 7 %; MONOCYTES ABSOLUTE (CALC) 2.35 10/3/uL (0.21-1.20); NEUTROPHILS ABSOLUTE (CALC) 27.22 10/3/uL (2.02-8.40); PLATELET ESTIMATE ADQ (ADEQUATE); SEGMENTED NEUTROPHIL (0) 65 %; TOTAL NUCLEATED CELLS 100
[2016-09-24 06:14] LABS: HEMATOCRIT 23.9 % (40.0-51.0); MEAN CORPUS HGB CONC 33.5 g/dL (32.0-36.0); MEAN CORPUSCULAR HEMOGLOB 29.4 pg (26.0-34.0); MEAN CORPUSCULAR VOLUME 87.9 fL (80-100); MEAN PLATELET VOLUME 8.7 fL (9.2-13.0); PLATELET COUNT 192 10/3/uL (150-400); RBC DISTRIBUTION WIDTH 18.5 % (12.0-16.0); RED CELL COUNT 2.72 10/6/uL (4.7-6.1)
[2016-09-24 06:17] LABS: MANUAL DIFF YES %; WHITE BLOOD CELLS 37.7 10/3/uL (4.5-10.5)
[2016-09-24 06:31] LABS: BUN (BLOOD UREA NITROGEN) 18 MG/DL (6-23); CALCIUM, SERUM 7.8 MG/DL (8.5-10.4); CHLORIDE, SERUM 101 MMOL/L (96-112); CO2 (CARBON DIOXIDE) 27 MMOL/L (24-34); CREATININE 0.74 MG/DL (0.70-1.30); GFR AFRICAN AMERICAN 111 ML/MIN (>=60); GFR NON AFRICAN AMERICAN 95 ML/MIN (>=60); POTASSIUM, SERUM 3.9 MMOL/L (3.5-5.3); SODIUM, SERUM 137 MMOL/L (135-148)
[2016-09-24 06:34] LABS: GLUCOSE, SERUM 83 MG/DL (60-99)
[2016-09-24 06:40] LABS: LYMPHOCYTES 10 %; LYMPHOCYTES ABSOLUTE (CALC) 3.77 10/3/uL (0.67-4.30); MONOCYTES 6 %; MONOCYTES ABSOLUTE (CALC) 2.26 10/3/uL (0.21-1.20); NEUTROPHILS ABSOLUTE (CALC) 31.67 10/3/uL (2.02-8.40); SEGMENTED NEUTROPHIL (0) 84 %; TOTAL NUCLEATED CELLS 100
[2016-09-24 06:41] LABS: ANISOCYTOSIS 1+ (5-10/OIF) (0-5/OIF); PLATELET ESTIMATE ADQ (ADEQUATE)
[2016-09-25 07:04] LABS: HEMATOCRIT 22.1 % (40.0-51.0); HEMOGLOBIN 7.3 g/dL (13.6-17.8); MEAN CORPUSCULAR HEMOGLOB 28.9 pg (26.0-34.0); MEAN CORPUSCULAR VOLUME 87.4 fL (80-100); MEAN PLATELET VOLUME 9.1 fL (9.2-13.0); PLATELET COUNT 172 10/3/uL (150-400); RBC DISTRIBUTION WIDTH 18.6 % (12.0-16.0); RED CELL COUNT 2.53 10/6/uL (4.7-6.1)
[2016-09-25 07:12] LABS: MANUAL DIFF YES %; WHITE BLOOD CELLS 33.8 10/3/uL (4.5-10.5)
[2016-09-25 07:15] LABS: CALCIUM, SERUM 7.7 MG/DL (8.5-10.4); CHLORIDE, SERUM 97 MMOL/L (96-112); CO2 (CARBON DIOXIDE) 29 MMOL/L (24-34); CREATININE 0.88 MG/DL (0.70-1.30); GFR AFRICAN AMERICAN 103 ML/MIN (>=60); GFR NON AFRICAN AMERICAN 89 ML/MIN (>=60); POTASSIUM, SERUM 3.7 MMOL/L (3.5-5.3); SODIUM, SERUM 137 MMOL/L (135-148)
[2016-09-25 07:16] LABS: BUN (BLOOD UREA NITROGEN) 24 MG/DL (6-23); GLUCOSE, SERUM 115 MG/DL (60-99)
[2016-09-25 07:26] LABS: ANISOCYTOSIS 1+ (5-10/OIF) (0-5/OIF); LYMPHOCYTES 14 %; LYMPHOCYTES ABSOLUTE (CALC) 4.73 10/3/uL (0.67-4.30); MONOCYTES 6 %; MONOCYTES ABSOLUTE (CALC) 2.03 10/3/uL (0.21-1.20); NEUTROPHILS ABSOLUTE (CALC) 27.04 10/3/uL (2.02-8.40); PLATELET ESTIMATE ADQ (ADEQUATE); SEGMENTED NEUTROPHIL (0) 80 %; TOTAL NUCLEATED CELLS 100
[2016-09-25 09:46] LABS: BE (BASE EXCESS) 3.3 MEQ/L (0 +/- 2.5); INSTRUMENT SERIAL # 35151; PCO2 (CO2 TENSION) 40 MMHG (35-45); PO2 (O2 TENSION) 95 MMHG (79-93); pH 7.46 (7.37-7.43)
[2016-09-25 09:47] LABS: ALLENS TEST Pos; CARBOXYHEMOGLOBIN 0.1 % (0-3); DEVICE room air; HCO3 (ACTUAL BICARBONATE) 27.5 MEQ/L (23-27); METHEMOGLOBIN 0.7 % (0-3); OPERATOR ID 14472; SAMPLE Arterial
[2016-09-25 10:06] LABS: PROCALCITONIN 18.32 ng/mL (<0.5)
[2016-09-25 10:37] LABS: AMMONIA < 10 UMOL/L (11-32)
[2016-09-25 10:39] LABS: ALBUMIN 1.2 G/DL (3.5-5.0); DIRECT BILIRUBIN 0.2 MG/DL (0.0-0.4); INDIRECT BILIRUBIN(NOT ORDER) 0.2 MG/DL (0.1-0.9); TOTAL BILIRUBIN 0.4 MG/DL (0-1.2)
[2016-09-25 10:53] LABS: B NATRIURETIC PEPTIDE (BNP) 36.9 PG/ML (< 100.0)
[2016-09-26 09:34] LABS: HEMOGLOBIN 8.1 g/dL (13.6-17.8); MEAN CORPUS HGB CONC 32.8 g/dL (32.0-36.0); MEAN CORPUSCULAR HEMOGLOB 28.8 pg (26.0-34.0); MEAN CORPUSCULAR VOLUME 87.9 fL (80-100); MEAN PLATELET VOLUME 8.9 fL (9.2-13.0); PLATELET COUNT 215 10/3/uL (150-400); RBC DISTRIBUTION WIDTH 18.7 % (12.0-16.0); RED CELL COUNT 2.81 10/6/uL (4.7-6.1)
[2016-09-26 09:35] LABS: BUN (BLOOD UREA NITROGEN) 22 MG/DL (6-23); CALCIUM, SERUM 7.8 MG/DL (8.5-10.4); CHLORIDE, SERUM 94 MMOL/L (96-112); CO2 (CARBON DIOXIDE) 27 MMOL/L (24-34); CREATININE 0.91 MG/DL (0.70-1.30); GFR AFRICAN AMERICAN 101 ML/MIN (>=60); GFR NON AFRICAN AMERICAN 87 ML/MIN (>=60); GLUCOSE, SERUM 157 MG/DL (60-99); POTASSIUM, SERUM 4.3 MMOL/L (3.5-5.3); SODIUM, SERUM 133 MMOL/L (135-148)
[2016-09-26 09:41] LABS: HEMATOCRIT 24.7 % (40.0-51.0); WHITE BLOOD CELLS 36.7 10/3/uL (4.5-10.5)
[2016-09-26 09:42] LABS: MANUAL DIFF YES %
[2016-09-26 10:03] LABS: ANISOCYTOSIS 1+ (5-10/OIF) (0-5/OIF); BAND NEUTROPHILS 15 %; EOSINOPHILS 1 %; EOSINOPHILS ABSOLUTE (CALC) 0.37 10/3/uL (0.0-0.53); LYMPHOCYTES 6 %; MONOCYTES 3 %; NEUTROPHILS ABSOLUTE (CALC) 33.03 10/3/uL (2.02-8.40); PLATELET ESTIMATE ADQ (ADEQUATE); SEGMENTED NEUTROPHIL (0) 75 %; TOTAL NUCLEATED CELLS 100
[2016-09-26 10:04] LABS: POLYCHROMASIA 1+ (2-5/OIF) (0-1/OIF)
[2016-09-26 13:27] LABS: ASCORBIC ACID (UR NOT ORDER) NEG (NEG); BILIRUBIN, URINE NEGATIVE (NEG); KETONE, URINE NEGATIVE (NEG); LEUKOCYTE ESTERASE(NOT OR LARGE (NEG); WBC (NOT ORDERED) (RFLEX) 62 (0-5)
[2016-09-27 05:22] LABS: HEMATOCRIT 22.4 % (40.0-51.0); HEMOGLOBIN 7.4 g/dL (13.6-17.8); MEAN CORPUSCULAR HEMOGLOB 29.2 pg (26.0-34.0); MEAN CORPUSCULAR VOLUME 88.5 fL (80-100); MEAN PLATELET VOLUME 9.7 fL (9.2-13.0); PLATELET COUNT 224 10/3/uL (150-400); RBC DISTRIBUTION WIDTH 18.7 % (12.0-16.0); RED CELL COUNT 2.53 10/6/uL (4.7-6.1)
[2016-09-27 05:24] LABS: MANUAL DIFF YES %; WHITE BLOOD CELLS 33.5 10/3/uL (4.5-10.5)
[2016-09-27 05:33] LABS: BUN (BLOOD UREA NITROGEN) 20 MG/DL (6-23); CALCIUM, SERUM 8.1 MG/DL (8.5-10.4); CHLORIDE, SERUM 98 MMOL/L (96-112); CO2 (CARBON DIOXIDE) 24 MMOL/L (24-34); CREATININE 0.94 MG/DL (0.70-1.30); GFR AFRICAN AMERICAN 97 ML/MIN (>=60); GFR NON AFRICAN AMERICAN 84 ML/MIN (>=60); POTASSIUM, SERUM 4.2 MMOL/L (3.5-5.3); SODIUM, SERUM 133 MMOL/L (135-148)
[2016-09-27 05:34] LABS: GLUCOSE, SERUM 210 MG/DL (60-99)
[2016-09-27 05:47] LABS: ANISOCYTOSIS 1+ (5-10/OIF) (0-5/OIF); BAND NEUTROPHILS 10 %; LYMPHOCYTES 8 %; LYMPHOCYTES ABSOLUTE (CALC) 2.68 10/3/uL (0.67-4.30); MONOCYTES 1 %; MONOCYTES ABSOLUTE (CALC) 0.34 10/3/uL (0.21-1.20); NEUTROPHILS ABSOLUTE (CALC) 30.49 10/3/uL (2.02-8.40); PLATELET ESTIMATE ADQ (ADEQUATE); SEGMENTED NEUTROPHIL (0) 81 %; TOTAL NUCLEATED CELLS 100
[2016-09-28 07:44] LABS: HEMOGLOBIN 8.5 g/dL (13.6-17.8); MEAN CORPUS HGB CONC 33.3 g/dL (32.0-36.0); MEAN CORPUSCULAR HEMOGLOB 28.6 pg (26.0-34.0); MEAN CORPUSCULAR VOLUME 85.9 fL (80-100); MEAN PLATELET VOLUME 8.8 fL (9.2-13.0); PLATELET COUNT 241 10/3/uL (150-400); RBC DISTRIBUTION WIDTH 18.7 % (12.0-16.0); RED CELL COUNT 2.97 10/6/uL (4.7-6.1)
[2016-09-28 07:46] LABS: HEMATOCRIT 25.5 % (40.0-51.0); WHITE BLOOD CELLS 34.5 10/3/uL (4.5-10.5)
[2016-09-28 07:47] LABS: MANUAL DIFF YES %
[2016-09-28 08:00] LABS: BUN (BLOOD UREA NITROGEN) 21 MG/DL (6-23); CHLORIDE, SERUM 98 MMOL/L (96-112); CO2 (CARBON DIOXIDE) 26 MMOL/L (24-34); CREATININE 0.82 MG/DL (0.70-1.30); GFR AFRICAN AMERICAN 106 ML/MIN (>=60); GFR NON AFRICAN AMERICAN 92 ML/MIN (>=60); POTASSIUM, SERUM 4.4 MMOL/L (3.5-5.3); SGOT(AST) 49 U/L (5-40); SGPT(ALT) 27 U/L (5-65); SODIUM, SERUM 136 MMOL/L (135-148); TOTAL PROTEIN 6.7 G/DL (6.0-8.5)
[2016-09-28 08:01] LABS: A/G RATIO 0.4 (0.7-1.9); ALBUMIN 1.8 G/DL (3.5-5.0); ALKALINE PHOSPHATASE 187 U/L (45-117); GLOBULIN 4.9 G/DL (2.5-4.1); GLUCOSE, SERUM 95 MG/DL (60-99); TOTAL BILIRUBIN 1.3 MG/DL (0-1.2)
[2016-09-28 08:45] LABS: ANISOCYTOSIS 1+ (5-10/OIF) (0-5/OIF); LYMPHOCYTES 8 %; LYMPHOCYTES ABSOLUTE (CALC) 2.76 10/3/uL (0.67-4.30); MONOCYTES 4 %; MONOCYTES ABSOLUTE (CALC) 1.38 10/3/uL (0.21-1.20); NEUTROPHILS ABSOLUTE (CALC) 30.36 10/3/uL (2.02-8.40); PLATELET ESTIMATE ADQ (ADEQUATE); SEGMENTED NEUTROPHIL (0) 88 %; TOTAL NUCLEATED CELLS 100
[2016-09-28 08:46] LABS: HYPOCHROMIA 1+ (3-10/OIF) (0-2/OIF); POLYCHROMASIA 1+ (2-5/OIF) (0-1/OIF)
[2016-09-28 09:35] LABS: PROCALCITONIN 10.82 ng/mL (<0.5)
[2016-09-29 01:20] LABS: ASCORBIC ACID (UR NOT ORDER) NEG (NEG); BILIRUBIN, URINE NEGATIVE (NEG); KETONE, URINE NEGATIVE (NEG); LEUKOCYTE ESTERASE(NOT OR SMALL (NEG); WBC (NOT ORDERED) (RFLEX) 18 (0-5)
[2016-09-30 06:08] LABS: MEAN CORPUS HGB CONC 33.5 g/dL (32.0-36.0); MEAN CORPUSCULAR HEMOGLOB 29.2 pg (26.0-34.0); MEAN CORPUSCULAR VOLUME 87.2 fL (80-100); MEAN PLATELET VOLUME 9.8 fL (9.2-13.0); RBC DISTRIBUTION WIDTH 18.9 % (12.0-16.0)
[2016-09-30 06:14] LABS: HEMATOCRIT 19.7 % (40.0-51.0); HEMOGLOBIN 6.6 g/dL (13.6-17.8); MANUAL DIFF YES %; PLATELET COUNT 130 10/3/uL (150-400); RED CELL COUNT 2.26 10/6/uL (4.7-6.1); WHITE BLOOD CELLS 29.2 10/3/uL (4.5-10.5)
[2016-09-30 06:22] LABS: A/G RATIO 0.3 (0.7-1.9); ALKALINE PHOSPHATASE 176 U/L (45-117); BUN (BLOOD UREA NITROGEN) 24 MG/DL (6-23); CALCIUM, SERUM 7.4 MG/DL (8.5-10.4); CHLORIDE, SERUM 98 MMOL/L (96-112); CO2 (CARBON DIOXIDE) 24 MMOL/L (24-34); CREATININE 1.11 MG/DL (0.70-1.30); GFR AFRICAN AMERICAN 79 ML/MIN (>=60); GFR NON AFRICAN AMERICAN 68 ML/MIN (>=60); GLOBULIN 4.4 G/DL (2.5-4.1); GLUCOSE, SERUM 104 MG/DL (60-99); POTASSIUM, SERUM 4.5 MMOL/L (3.5-5.3); SGOT(AST) 57 U/L (5-40); SGPT(ALT) 38 U/L (5-65); SODIUM, SERUM 134 MMOL/L (135-148); TOTAL BILIRUBIN 1.4 MG/DL (0-1.2); TOTAL PROTEIN 5.8 G/DL (6.0-8.5)
[2016-09-30 06:23] LABS: ALBUMIN 1.4 G/DL (3.5-5.0)
[2016-09-30 06:27] LABS: ANISOCYTOSIS 1+ (5-10/OIF) (0-5/OIF); BAND NEUTROPHILS 24 %; LYMPHOCYTES 8 %; LYMPHOCYTES ABSOLUTE (CALC) 2.34 10/3/uL (0.67-4.30); NEUTROPHILS ABSOLUTE (CALC) 26.86 10/3/uL (2.02-8.40); PLATELET ESTIMATE SLT DEC (ADEQUATE); POLYCHROMASIA 1+ (2-5/OIF) (0-1/OIF); SEGMENTED NEUTROPHIL (0) 68 %; TOTAL NUCLEATED CELLS 100; TOXIC GRANULATION 1+
[2016-10-01 05:24] LABS: HEMATOCRIT 24.8 % (40.0-51.0); HEMOGLOBIN 8.3 g/dL (13.6-17.8); MANUAL DIFF YES %; MEAN CORPUS HGB CONC 33.5 g/dL (32.0-36.0); MEAN CORPUSCULAR HEMOGLOB 29.3 pg (26.0-34.0); MEAN CORPUSCULAR VOLUME 87.6 fL (80-100); MEAN PLATELET VOLUME 9.5 fL (9.2-13.0); PLATELET COUNT 120 10/3/uL (150-400); RBC DISTRIBUTION WIDTH 17.5 % (12.0-16.0); RED CELL COUNT 2.83 10/6/uL (4.7-6.1); WHITE BLOOD CELLS 24.8 10/3/uL (4.5-10.5)
[2016-10-01 07:14] LABS: ANISOCYTOSIS 1+ (5-10/OIF) (0-5/OIF); BAND NEUTROPHILS 34 %; EOSINOPHILS 1 %; EOSINOPHILS ABSOLUTE (CALC) 0.25 10/3/uL (0.0-0.53); IMMATURE GRANS ABSOLUTE (CALC) 0.74 10/3/uL (0.0-0.11); LYMPHOCYTES 10 %; LYMPHOCYTES ABSOLUTE (CALC) 2.48 10/3/uL (0.67-4.30); METAMYELOCYTES 3 %; MONOCYTES 3 %; MONOCYTES ABSOLUTE (CALC) 0.74 10/3/uL (0.21-1.20); NEUTROPHILS ABSOLUTE (CALC) 20.58 10/3/uL (2.02-8.40); SEGMENTED NEUTROPHIL (0) 49 %; TOTAL NUCLEATED CELLS 100
[2016-10-01 07:15] LABS: HELMET CELLS OCC (0-2/OIF); PLATELET ESTIMATE SLT DEC (ADEQUATE); POLYCHROMASIA 1+ (2-5/OIF) (0-1/OIF); TARGET CELLS FEW (3-10/OIF) (0-1/OIF); TEARDROP SHAPED RBCS OCC (0-2/OIF); TOXIC GRANULATION 1+
[2016-10-01 07:16] LABS: HYPOCHROMIA 1+ (3-10/OIF) (0-2/OIF); VACUOLATED NEUTROPHILES FEW
[2016-10-02 09:25] LABS: HEMATOCRIT 27.2 % (40.0-51.0); HEMOGLOBIN 9.1 g/dL (13.6-17.8); MEAN CORPUS HGB CONC 33.5 g/dL (32.0-36.0); MEAN CORPUSCULAR HEMOGLOB 29.4 pg (26.0-34.0); MEAN PLATELET VOLUME 9.1 fL (9.2-13.0); PLATELET COUNT 104 10/3/uL (150-400); RBC DISTRIBUTION WIDTH 17.7 % (12.0-16.0); RED CELL COUNT 3.09 10/6/uL (4.7-6.1); WHITE BLOOD CELLS 24.1 10/3/uL (4.5-10.5)
[2016-10-02 09:26] LABS: MANUAL DIFF YES %
[2016-10-02 09:38] LABS: BUN (BLOOD UREA NITROGEN) 20 MG/DL (6-23); CALCIUM, SERUM 7.6 MG/DL (8.5-10.4); CHLORIDE, SERUM 96 MMOL/L (96-112); CO2 (CARBON DIOXIDE) 27 MMOL/L (24-34); CREATININE 0.94 MG/DL (0.70-1.30); GFR AFRICAN AMERICAN 97 ML/MIN (>=60); GFR NON AFRICAN AMERICAN 84 ML/MIN (>=60); GLUCOSE, SERUM 100 MG/DL (60-99); POTASSIUM, SERUM 4.7 MMOL/L (3.5-5.3); SODIUM, SERUM 135 MMOL/L (135-148)
[2016-10-02 09:50] LABS: ANISOCYTOSIS 1+ (5-10/OIF) (0-5/OIF); BAND NEUTROPHILS 28 %; IMMATURE GRANS ABSOLUTE (CALC) 0.96 10/3/uL (0.0-0.11); LYMPHOCYTES 6 %; LYMPHOCYTES ABSOLUTE (CALC) 1.45 10/3/uL (0.67-4.30); METAMYELOCYTES 3 %; MONOCYTES 2 %; MONOCYTES ABSOLUTE (CALC) 0.48 10/3/uL (0.21-1.20); MYELOCYTES 1 %; NEUTROPHILS ABSOLUTE (CALC) 21.21 10/3/uL (2.02-8.40); PLATELET ESTIMATE SLT DEC (ADEQUATE); POLYCHROMASIA 1+ (2-5/OIF) (0-1/OIF); SEGMENTED NEUTROPHIL (0) 60 %; TEARDROP SHAPED RBCS OCC (0-2/OIF); TOTAL NUCLEATED CELLS 100; TOXIC GRANULATION 1+; VACUOLATED NEUTROPHILES FEW
[2016-10-02 09:51] LABS: MACROCYTES 1+ (5-10/OIF) (0-5/OIF); TARGET CELLS OCC (1-2/OIF) (0-1/OIF)
[2016-10-03 05:07] LABS: BASOPHILS 0.2 %; BASOPHILS ABSOLUTE 0.04 10/3/uL (0.0-0.16); EOSINOPHILS 0.6 %; IMMATURE GRANULOCYTES 1.4 %; IMMATURE GRANULOCYTES ABSOLUTE 0.25 10/3/uL (0.0-0.11); LYMPHOCYTES 5.5 %; LYMPHOCYTES ABSOLUTE 0.96 10/3/uL (0.67-4.30); MEAN CORPUS HGB CONC 33.6 g/dL (32.0-36.0); MEAN CORPUSCULAR HEMOGLOB 29.7 pg (26.0-34.0); MEAN CORPUSCULAR VOLUME 88.5 fL (80-100); MEAN PLATELET VOLUME 9.5 fL (9.2-13.0); MONOCYTES 4.1 %; MONOCYTES ABSOLUTE 0.71 10/3/uL (0.21-1.20); NEUTROPHILS 88.2 %; NEUTROPHILS ABSOLUTE 15.29 10/3/uL (2.02-8.40); PLATELET COUNT 97 10/3/uL (150-400); RED CELL COUNT 2.69 10/6/uL (4.7-6.1); WHITE BLOOD CELLS 17.4 10/3/uL (4.5-10.5)
[2016-10-03 05:10] LABS: HEMATOCRIT 23.8 % (40.0-51.0)
[2016-10-03 05:11] LABS: MANUAL DIFF NO %
[2016-10-03 05:23] LABS: A/G RATIO 0.3 (0.7-1.9); ALBUMIN 1.3 G/DL (3.5-5.0); CALCIUM, SERUM 7.4 MG/DL (8.5-10.4); CHLORIDE, SERUM 97 MMOL/L (96-112); CO2 (CARBON DIOXIDE) 25 MMOL/L (24-34); CREATININE 0.84 MG/DL (0.70-1.30); GFR AFRICAN AMERICAN 105 ML/MIN (>=60); GFR NON AFRICAN AMERICAN 91 ML/MIN (>=60); GLOBULIN 4.7 G/DL (2.5-4.1); POTASSIUM, SERUM 4.5 MMOL/L (3.5-5.3); SGOT(AST) 31 U/L (5-40); SGPT(ALT) 25 U/L (5-65); SODIUM, SERUM 134 MMOL/L (135-148); TOTAL BILIRUBIN 1.3 MG/DL (0-1.2)
[2016-10-03 05:24] LABS: ALKALINE PHOSPHATASE 164 U/L (45-117); BUN (BLOOD UREA NITROGEN) 26 MG/DL (6-23); GLUCOSE, SERUM 163 MG/DL (60-99)
[2016-10-04 06:42] LABS: BUN (BLOOD UREA NITROGEN) 26 MG/DL (6-23); CALCIUM, SERUM 7.8 MG/DL (8.5-10.4); CHLORIDE, SERUM 98 MMOL/L (96-112); CO2 (CARBON DIOXIDE) 26 MMOL/L (24-34); GFR AFRICAN AMERICAN 102 ML/MIN (>=60); GFR NON AFRICAN AMERICAN 88 ML/MIN (>=60); POTASSIUM, SERUM 4.6 MMOL/L (3.5-5.3); SODIUM, SERUM 134 MMOL/L (135-148)
[2016-10-04 06:43] LABS: GLUCOSE, SERUM 105 MG/DL (60-99)
[2016-10-04 06:44] LABS: BASOPHILS 0.3 %; BASOPHILS ABSOLUTE 0.05 10/3/uL (0.0-0.16); EOSINOPHILS 0.6 %; EOSINOPHILS ABSOLUTE 0.12 10/3/uL (0.0-0.53); HEMATOCRIT 23.1 % (40.0-51.0); HEMOGLOBIN 7.7 g/dL (13.6-17.8); IMMATURE GRANULOCYTES 1.8 %; IMMATURE GRANULOCYTES ABSOLUTE 0.36 10/3/uL (0.0-0.11); LYMPHOCYTES 8.2 %; LYMPHOCYTES ABSOLUTE 1.61 10/3/uL (0.67-4.30); MEAN CORPUS HGB CONC 33.3 g/dL (32.0-36.0); MEAN CORPUSCULAR HEMOGLOB 29.6 pg (26.0-34.0); MEAN CORPUSCULAR VOLUME 88.8 fL (80-100); MEAN PLATELET VOLUME 10.7 fL (9.2-13.0); MONOCYTES 5.7 %; MONOCYTES ABSOLUTE 1.13 10/3/uL (0.21-1.20); NEUTROPHILS 83.4 %; NEUTROPHILS ABSOLUTE 16.41 10/3/uL (2.02-8.40); PLATELET COUNT 123 10/3/uL (150-400); RBC DISTRIBUTION WIDTH 18.1 % (12.0-16.0); WHITE BLOOD CELLS 19.7 10/3/uL (4.5-10.5)
[2016-10-04 06:50] LABS: MANUAL DIFF NO %
[2016-10-05 05:58] LABS: BASOPHILS 0.1 %; BASOPHILS ABSOLUTE 0.01 10/3/uL (0.0-0.16); EOSINOPHILS 0.1 %; EOSINOPHILS ABSOLUTE 0.01 10/3/uL (0.0-0.53); HEMATOCRIT 22.2 % (40.0-51.0); HEMOGLOBIN 7.4 g/dL (13.6-17.8); IMMATURE GRANULOCYTES ABSOLUTE 0.18 10/3/uL (0.0-0.11); LYMPHOCYTES ABSOLUTE 1.57 10/3/uL (0.67-4.30); MEAN CORPUS HGB CONC 33.3 g/dL (32.0-36.0); MEAN CORPUSCULAR HEMOGLOB 29.7 pg (26.0-34.0); MEAN CORPUSCULAR VOLUME 89.2 fL (80-100); MEAN PLATELET VOLUME 10.7 fL (9.2-13.0); MONOCYTES ABSOLUTE 0.53 10/3/uL (0.21-1.20); NEUTROPHILS 86.8 %; NEUTROPHILS ABSOLUTE 15.14 10/3/uL (2.02-8.40); PLATELET COUNT 147 10/3/uL (150-400); RBC DISTRIBUTION WIDTH 17.7 % (12.0-16.0); RED CELL COUNT 2.49 10/6/uL (4.7-6.1); WHITE BLOOD CELLS 17.4 10/3/uL (4.5-10.5)
[2016-10-05 06:06] LABS: MANUAL DIFF NO %
[2016-10-05 06:10] LABS: BUN (BLOOD UREA NITROGEN) 26 MG/DL (6-23); CALCIUM, SERUM 8.1 MG/DL (8.5-10.4); CHLORIDE, SERUM 99 MMOL/L (96-112); CO2 (CARBON DIOXIDE) 24 MMOL/L (24-34); CREATININE 0.94 MG/DL (0.70-1.30); GFR AFRICAN AMERICAN 97 ML/MIN (>=60); GFR NON AFRICAN AMERICAN 84 ML/MIN (>=60); GLUCOSE, SERUM 83 MG/DL (60-99); POTASSIUM, SERUM 4.8 MMOL/L (3.5-5.3); SODIUM, SERUM 135 MMOL/L (135-148)
[2016-10-05 06:36] LABS: PROCALCITONIN 7.04 ng/mL (<0.5)
[2016-10-06 06:27] LABS: MEAN CORPUSCULAR HEMOGLOB 29.6 pg (26.0-34.0); MEAN CORPUSCULAR VOLUME 89.7 fL (80-100); PLATELET COUNT 113 10/3/uL (150-400); RBC DISTRIBUTION WIDTH 17.8 % (12.0-16.0); RED CELL COUNT 2.13 10/6/uL (4.7-6.1); WHITE BLOOD CELLS 15.2 10/3/uL (4.5-10.5)
[2016-10-06 06:41] LABS: HEMATOCRIT 19.1 % (40.0-51.0); HEMOGLOBIN 6.3 g/dL (13.6-17.8)
[2016-10-06 06:42] LABS: MANUAL DIFF YES %
[2016-10-06 06:43] LABS: CALCIUM, SERUM 8.4 MG/DL (8.5-10.4); CHLORIDE, SERUM 99 MMOL/L (96-112); CO2 (CARBON DIOXIDE) 22 MMOL/L (24-34); CREATININE 1.17 MG/DL (0.70-1.30); GFR AFRICAN AMERICAN 74 ML/MIN (>=60); GFR NON AFRICAN AMERICAN 64 ML/MIN (>=60); GLUCOSE, SERUM 92 MG/DL (60-99); SODIUM, SERUM 135 MMOL/L (135-148)
[2016-10-06 06:47] LABS: BUN (BLOOD UREA NITROGEN) 37 MG/DL (6-23); POTASSIUM, SERUM 5.9 MMOL/L (3.5-5.3)
[2016-10-06 07:20] LABS: ANISOCYTOSIS 1+ (5-10/OIF) (0-5/OIF); BAND NEUTROPHILS 26 %; EOSINOPHILS ABSOLUTE (CALC) 0.15 10/3/uL (0.0-0.53); IMMATURE GRANS ABSOLUTE (CALC) 1.22 10/3/uL (0.0-0.11); LYMPHOCYTES 6 %; LYMPHOCYTES ABSOLUTE (CALC) 0.91 10/3/uL (0.67-4.30); METAMYELOCYTES 8 %; MONOCYTES 1 %; NEUTROPHILS ABSOLUTE (CALC) 12.92 10/3/uL (2.02-8.40); PLATELET ESTIMATE SLT DEC (ADEQUATE); SEGMENTED NEUTROPHIL (0) 59 %; TOTAL NUCLEATED CELLS 100
[2016-10-07 04:55] LABS: MEAN CORPUS HGB CONC 33.9 g/dL (32.0-36.0); MEAN CORPUSCULAR HEMOGLOB 29.4 pg (26.0-34.0); MEAN PLATELET VOLUME 11.2 fL (9.2-13.0); PLATELET COUNT 122 10/3/uL (150-400); RBC DISTRIBUTION WIDTH 17.6 % (12.0-16.0); WHITE BLOOD CELLS 11.8 10/3/uL (4.5-10.5)
[2016-10-07 05:03] LABS: HEMOGLOBIN 9.5 g/dL (13.6-17.8); MANUAL DIFF YES %; MEAN CORPUSCULAR VOLUME 86.7 fL (80-100); RED CELL COUNT 3.23 10/6/uL (4.7-6.1)
[2016-10-07 05:05] LABS: CALCIUM, SERUM 8.5 MG/DL (8.5-10.4); CHLORIDE, SERUM 100 MMOL/L (96-112); CO2 (CARBON DIOXIDE) 20 MMOL/L (24-34); CREATININE 1.21 MG/DL (0.70-1.30); GFR AFRICAN AMERICAN 71 ML/MIN (>=60); GFR NON AFRICAN AMERICAN 62 ML/MIN (>=60); GLUCOSE, SERUM 89 MG/DL (60-99); POTASSIUM, SERUM 5.7 MMOL/L (3.5-5.3); SODIUM, SERUM 138 MMOL/L (135-148)
[2016-10-07 05:07] LABS: BUN (BLOOD UREA NITROGEN) 45 MG/DL (6-23)
[2016-10-07 06:17] LABS: ANISOCYTOSIS 1+ (5-10/OIF) (0-5/OIF); BAND NEUTROPHILS 8 %; LYMPHOCYTES 6 %; LYMPHOCYTES ABSOLUTE (CALC) 0.71 10/3/uL (0.67-4.30); MONOCYTES 1 %; MONOCYTES ABSOLUTE (CALC) 0.12 10/3/uL (0.21-1.20); NEUTROPHILS ABSOLUTE (CALC) 10.97 10/3/uL (2.02-8.40); PLATELET ESTIMATE SLT DEC (ADEQUATE); SEGMENTED NEUTROPHIL (0) 85 %; TOTAL NUCLEATED CELLS 100
[2016-10-07 10:18] LABS: HEMOGLOBIN 8.2 g/dL (13.6-17.8)
[2016-10-07 10:21] LABS: HEMATOCRIT 24.8 % (40.0-51.0)
[2016-10-07 10:26] LABS: INTERNATIONAL NORMAL RATI 1.9 UNITS (-); PARTIAL THROMBO TIME 35.3 SEC (22.5-37.2); PROTIME (NOT ORD) 21.4 SEC (12.0-14.5)
[2016-10-07 11:07] LABS: BE (BASE EXCESS) -4.9 MEQ/L (0 +/- 2.5); CARBOXYHEMOGLOBIN 0.5 % (0-3); HCO3 (ACTUAL BICARBONATE) 19.1 MEQ/L (23-27); HEMOBLOGIN CONTENT 9.3 G/DL (14-18); INSTRUMENT SERIAL # 8083; METHEMOGLOBIN 0.2 % (0-3); O2 CONTENT 12.6 VOL% (18-24); PCO2 (CO2 TENSION) 31 MMHG (35-45); PO2 (O2 TENSION) 87 MMHG (79-93); SAMPLE Arterial
[2016-10-07 12:10] LABS: A/G RATIO 0.3 (0.7-1.9); ALBUMIN 1.4 G/DL (3.5-5.0); BUN (BLOOD UREA NITROGEN) 46 MG/DL (6-23); CHLORIDE, SERUM 102 MMOL/L (96-112); CO2 (CARBON DIOXIDE) 19 MMOL/L (24-34); GFR AFRICAN AMERICAN 65 ML/MIN (>=60); GFR NON AFRICAN AMERICAN 56 ML/MIN (>=60); GLOBULIN 4.2 G/DL (2.5-4.1); GLUCOSE, SERUM 91 MG/DL (60-99); POTASSIUM, SERUM 5.7 MMOL/L (3.5-5.3); SGOT(AST) 49 U/L (5-40); SGPT(ALT) 25 U/L (5-65); SODIUM, SERUM 138 MMOL/L (135-148); TOTAL PROTEIN 5.6 G/DL (6.0-8.5); TROPONIN I <0.02 NG/ML (<0.05)
[2016-10-07 12:11] LABS: ALKALINE PHOSPHATASE 141 U/L (45-117); CK-MB 0.5 NG/ML; CPK 23 U/L (0-200); PHOSPHORUS, SERUM 5.5 MG/DL (2.5-4.5)
[2016-10-07 12:24] LABS: PROCALCITONIN 7.04 ng/mL (<0.5)
[2016-10-07 13:58] LABS: HEMATOCRIT 23.6 % (40.0-51.0); MEAN CORPUS HGB CONC 33.9 g/dL (32.0-36.0); MEAN CORPUSCULAR HEMOGLOB 29.1 pg (26.0-34.0); MEAN CORPUSCULAR VOLUME 85.8 fL (80-100); MEAN PLATELET VOLUME 10.7 fL (9.2-13.0); PLATELET COUNT 107 10/3/uL (150-400); RBC DISTRIBUTION WIDTH 17.8 % (12.0-16.0); RED CELL COUNT 2.75 10/6/uL (4.7-6.1); WHITE BLOOD CELLS 10.3 10/3/uL (4.5-10.5)
[2016-10-07 13:59] LABS: MANUAL DIFF YES %
[2016-10-07 14:25] LABS: ANISOCYTOSIS 1+ (5-10/OIF) (0-5/OIF); BAND NEUTROPHILS 22 %; LYMPHOCYTES 10 %; LYMPHOCYTES ABSOLUTE (CALC) 1.03 10/3/uL (0.67-4.30); MONOCYTES 8 %; MONOCYTES ABSOLUTE (CALC) 0.82 10/3/uL (0.21-1.20); NEUTROPHILS ABSOLUTE (CALC) 8.45 10/3/uL (2.02-8.40); PLATELET ESTIMATE SLT DEC (ADEQUATE); SEGMENTED NEUTROPHIL (0) 60 %; TOTAL NUCLEATED CELLS 100
[2016-10-07 14:26] LABS: MACROCYTES 1+ (5-10/OIF) (0-5/OIF); MICROCYTES 1+ (5-10/OIF) (0-5/OIF); POLYCHROMASIA 1+ (2-5/OIF) (0-1/OIF)
[2016-10-07 15:56] LABS: HEMATOCRIT 22.9 % (40.0-51.0); HEMOGLOBIN 7.9 g/dL (13.6-17.8)
[2016-10-07 22:16] LABS: ASCORBIC ACID (UR NOT ORDER) NEG (NEG); BILIRUBIN, URINE NEGATIVE (NEG); KETONE, URINE NEGATIVE (NEG); LEUKOCYTE ESTERASE(NOT OR LARGE (NEG)
[2016-10-07 22:16] LABS: HEMATOCRIT 21.8 % (40.0-51.0); HEMOGLOBIN 7.7 g/dL (13.6-17.8)
[2016-10-07 22:17] LABS: WBC (NOT ORDERED) (RFLEX) > 182 (0-5)
[2016-10-08 04:02] LABS: HEMOGLOBIN 7.2 g/dL (13.6-17.8); MEAN CORPUS HGB CONC 34.6 g/dL (32.0-36.0); MEAN CORPUSCULAR HEMOGLOB 29.6 pg (26.0-34.0); MEAN CORPUSCULAR VOLUME 85.6 fL (80-100); MEAN PLATELET VOLUME 10.3 fL (9.2-13.0); PLATELET COUNT 93 10/3/uL (150-400); RBC DISTRIBUTION WIDTH 17.6 % (12.0-16.0); RED CELL COUNT 2.43 10/6/uL (4.7-6.1)
[2016-10-08 04:03] LABS: HEMATOCRIT 20.8 % (40.0-51.0); WHITE BLOOD CELLS 6.1 10/3/uL (4.5-10.5)
[2016-10-08 04:12] LABS: MANUAL DIFF YES %
[2016-10-08 04:17] LABS: A/G RATIO 0.3 (0.7-1.9); ALBUMIN 1.2 G/DL (3.5-5.0); ALKALINE PHOSPHATASE 131 U/L (45-117); CALCIUM, SERUM 7.3 MG/DL (8.5-10.4); CHLORIDE, SERUM 106 MMOL/L (96-112); CREATININE 0.91 MG/DL (0.70-1.30); GFR AFRICAN AMERICAN 101 ML/MIN (>=60); GFR NON AFRICAN AMERICAN 87 ML/MIN (>=60); GLUCOSE, SERUM 153 MG/DL (60-99); SGOT(AST) 112 U/L (5-40); SGPT(ALT) 35 U/L (5-65); SODIUM, SERUM 143 MMOL/L (135-148); TOTAL PROTEIN 5.2 G/DL (6.0-8.5); TROPONIN I <0.02 NG/ML (<0.05)
[2016-10-08 04:22] LABS: BUN (BLOOD UREA NITROGEN) 41 MG/DL (6-23); CO2 (CARBON DIOXIDE) 27 MMOL/L (24-34); POTASSIUM, SERUM 4.4 MMOL/L (3.5-5.3); TOTAL BILIRUBIN 1.4 MG/DL (0-1.2)
[2016-10-08 04:50] LABS: BAND NEUTROPHILS 6 %; LYMPHOCYTES 27 %; LYMPHOCYTES ABSOLUTE (CALC) 1.65 10/3/uL (0.67-4.30); MONOCYTES 2 %; MONOCYTES ABSOLUTE (CALC) 0.12 10/3/uL (0.21-1.20); NEUTROPHILS ABSOLUTE (CALC) 4.33 10/3/uL (2.02-8.40); PLATELET ESTIMATE DEC (ADEQUATE); SEGMENTED NEUTROPHIL (0) 65 %; TOTAL NUCLEATED CELLS 100
[2016-10-08 04:51] LABS: RBC MORPHOLOGY ABN (NORMAL)
[2016-10-08 10:32] LABS: HEMOGLOBIN 6.8 g/dL (13.6-17.8)
[2016-10-08 12:21] LABS: PHOSPHORUS, SERUM 4.3 MG/DL (2.5-4.5)
[2016-10-08 17:04] LABS: HEMOGLOBIN 8.3 g/dL (13.6-17.8)
[2016-10-08 17:05] LABS: HEMATOCRIT 24.1 % (40.0-51.0)
[2016-10-08 23:32] LABS: HEMATOCRIT 24.5 % (40.0-51.0); HEMOGLOBIN 8.5 g/dL (13.6-17.8)
[2016-10-09 04:26] LABS: BASOPHILS 0.5 %; BASOPHILS ABSOLUTE 0.04 10/3/uL (0.0-0.16); EOSINOPHILS 0.3 %; EOSINOPHILS ABSOLUTE 0.03 10/3/uL (0.0-0.53); HEMATOCRIT 26.1 % (40.0-51.0); HEMOGLOBIN 8.8 g/dL (13.6-17.8); IMMATURE GRANULOCYTES 1.3 %; IMMATURE GRANULOCYTES ABSOLUTE 0.11 10/3/uL (0.0-0.11); LYMPHOCYTES 17.3 %; LYMPHOCYTES ABSOLUTE 1.52 10/3/uL (0.67-4.30); MEAN CORPUS HGB CONC 33.7 g/dL (32.0-36.0); MEAN CORPUSCULAR HEMOGLOB 29.3 pg (26.0-34.0); MEAN PLATELET VOLUME 10.1 fL (9.2-13.0); MONOCYTES 5.9 %; MONOCYTES ABSOLUTE 0.52 10/3/uL (0.21-1.20); NEUTROPHILS 74.7 %; NEUTROPHILS ABSOLUTE 6.55 10/3/uL (2.02-8.40); PLATELET COUNT 72 10/3/uL (150-400); RBC DISTRIBUTION WIDTH 17.2 % (12.0-16.0)
[2016-10-09 04:27] LABS: MANUAL DIFF NO %; WHITE BLOOD CELLS 8.8 10/3/uL (4.5-10.5)
[2016-10-09 04:40] LABS: CALCIUM, SERUM 7.1 MG/DL (8.5-10.4); CHLORIDE, SERUM 109 MMOL/L (96-112); CO2 (CARBON DIOXIDE) 28 MMOL/L (24-34); CREATININE 0.73 MG/DL (0.70-1.30); GFR AFRICAN AMERICAN 111 ML/MIN (>=60); GFR NON AFRICAN AMERICAN 96 ML/MIN (>=60); GLUCOSE, SERUM 163 MG/DL (60-99); POTASSIUM, SERUM 3.7 MMOL/L (3.5-5.3); SODIUM, SERUM 145 MMOL/L (135-148)
[2016-10-09 04:42] LABS: ANISOCYTOSIS 1+ (5-10/OIF) (0-5/OIF); RBC MORPHOLOGY ABN (NORMAL)
[2016-10-09 04:43] LABS: PLATELET ESTIMATE DEC (ADEQUATE)
[2016-10-09 04:45] LABS: BUN (BLOOD UREA NITROGEN) 31 MG/DL (6-23); PHOSPHORUS, SERUM 2.7 MG/DL (2.5-4.5)
[2016-10-09 09:53] LABS: HEMATOCRIT 26.5 % (40.0-51.0); HEMOGLOBIN 9.1 g/dL (13.6-17.8)
[2016-10-09 15:37] LABS: HEMATOCRIT 27.1 % (40.0-51.0)
[2016-10-10 03:46] LABS: HEMATOCRIT 26.2 % (40.0-51.0); HEMOGLOBIN 8.8 g/dL (13.6-17.8); MEAN CORPUS HGB CONC 33.6 g/dL (32.0-36.0); MEAN CORPUSCULAR HEMOGLOB 29.8 pg (26.0-34.0); MEAN CORPUSCULAR VOLUME 88.8 fL (80-100); PLATELET COUNT 61 10/3/uL (150-400); RBC DISTRIBUTION WIDTH 17.3 % (12.0-16.0); RED CELL COUNT 2.95 10/6/uL (4.7-6.1); WHITE BLOOD CELLS 8.1 10/3/uL (4.5-10.5)
[2016-10-10 03:53] LABS: MANUAL DIFF YES %
[2016-10-10 03:57] LABS: CALCIUM, SERUM 7.3 MG/DL (8.5-10.4); CHLORIDE, SERUM 108 MMOL/L (96-112); CO2 (CARBON DIOXIDE) 27 MMOL/L (24-34); CREATININE 0.72 MG/DL (0.70-1.30); GFR AFRICAN AMERICAN 112 ML/MIN (>=60); GFR NON AFRICAN AMERICAN 97 ML/MIN (>=60); GLUCOSE, SERUM 168 MG/DL (60-99); POTASSIUM, SERUM 3.6 MMOL/L (3.5-5.3); SODIUM, SERUM 145 MMOL/L (135-148)
[2016-10-10 03:58] LABS: BUN (BLOOD UREA NITROGEN) 27 MG/DL (6-23)
[2016-10-10 04:13] LABS: BAND NEUTROPHILS 2 %; LYMPHOCYTES 6 %; LYMPHOCYTES ABSOLUTE (CALC) 0.49 10/3/uL (0.67-4.30); MONOCYTES 7 %; MONOCYTES ABSOLUTE (CALC) 0.57 10/3/uL (0.21-1.20); NEUTROPHILS ABSOLUTE (CALC) 7.05 10/3/uL (2.02-8.40); SEGMENTED NEUTROPHIL (0) 85 %; TOTAL NUCLEATED CELLS 100
[2016-10-10 04:14] LABS: PLATELET ESTIMATE DEC (ADEQUATE); RBC MORPHOLOGY ABN (NORMAL)
[2016-10-10 10:17] LABS: HEMATOCRIT 27.8 % (40.0-51.0); HEMOGLOBIN 9.1 g/dL (13.6-17.8)
[2016-10-10 16:11] LABS: HEMATOCRIT 28.1 % (40.0-51.0); HEMOGLOBIN 9.5 g/dL (13.6-17.8)
[2016-10-10 22:53] LABS: HEMATOCRIT 28.7 % (40.0-51.0); HEMOGLOBIN 9.5 g/dL (13.6-17.8)
[2016-10-11 04:17] LABS: BASOPHILS 0 %; EOSINOPHILS 0.1 %; EOSINOPHILS ABSOLUTE 0.01 10/3/uL (0.0-0.53); HEMATOCRIT 26.8 % (40.0-51.0); HEMOGLOBIN 8.9 g/dL (13.6-17.8); IMMATURE GRANULOCYTES 0.7 %; IMMATURE GRANULOCYTES ABSOLUTE 0.06 10/3/uL (0.0-0.11); LYMPHOCYTES 16.5 %; LYMPHOCYTES ABSOLUTE 1.39 10/3/uL (0.67-4.30); MEAN CORPUS HGB CONC 33.2 g/dL (32.0-36.0); MEAN CORPUSCULAR HEMOGLOB 29.7 pg (26.0-34.0); MEAN CORPUSCULAR VOLUME 89.3 fL (80-100); MEAN PLATELET VOLUME 10.9 fL (9.2-13.0); MONOCYTES 14.1 %; MONOCYTES ABSOLUTE 1.19 10/3/uL (0.21-1.20); NEUTROPHILS 68.6 %; NEUTROPHILS ABSOLUTE 5.78 10/3/uL (2.02-8.40); PLATELET COUNT 71 10/3/uL (150-400); RBC DISTRIBUTION WIDTH 17.5 % (12.0-16.0); WHITE BLOOD CELLS 8.4 10/3/uL (4.5-10.5)
[2016-10-11 04:19] LABS: MANUAL DIFF NO %
[2016-10-11 04:34] LABS: BUN (BLOOD UREA NITROGEN) 30 MG/DL (6-23); CALCIUM, SERUM 7.2 MG/DL (8.5-10.4); CHLORIDE, SERUM 111 MMOL/L (96-112); CO2 (CARBON DIOXIDE) 28 MMOL/L (24-34); CREATININE 0.84 MG/DL (0.70-1.30); GFR AFRICAN AMERICAN 105 ML/MIN (>=60); GFR NON AFRICAN AMERICAN 91 ML/MIN (>=60); GLUCOSE, SERUM 184 MG/DL (60-99); PHOSPHORUS, SERUM 2.7 MG/DL (2.5-4.5); POTASSIUM, SERUM 3.4 MMOL/L (3.5-5.3); SODIUM, SERUM 147 MMOL/L (135-148)
[2016-10-11 04:53] LABS: PLATELET ESTIMATE DEC (ADEQUATE)
[2016-10-11 04:54] LABS: ANISOCYTOSIS 1+ (5-10/OIF) (0-5/OIF)
== END 2016-10-15 11:55 | disposition hospice, home (50) | DRG 435 ==
LOC: ER 21:16 → 6NO 09-16 01:34 → 4EA 09-28 13:51 → MIC 10-07 08:32 → 4EA 10-11 16:12
PROVIDERS: Emergency Medicine; Internal Medicine; Internal Medicine Critical Care Medicine; Internal Medicine Infectious Disease; Internal Medicine Pulmonary Disease; Nurse Practitioner Family; Student in an Organized Health Care Education/Training Program
PROC: 3E03305 Introduction of Other Antineoplastic into Peripheral Vein, Percutaneous Approach (ICD-10-PCS; 2016-09-27)
PROC: 30233N1 Transfusion of Nonautologous Red Blood Cells into Peripheral Vein, Percutaneous Approach (ICD-10-PCS; 2016-09-30)
PROC: 03HY32Z Insertion of Monitoring Device into Upper Artery, Percutaneous Approach (ICD-10-PCS; principal; 2016-10-07)
PROC: 02HV33Z Insertion of Infusion Device into Superior Vena Cava, Percutaneous Approach (ICD-10-PCS; 2016-10-07)
PROC: 4A02X4A Measurement of Cardiac Electrical Activity, Guidance, External Approach (ICD-10-PCS; 2016-10-07)
DX: C24.8 Malignant neoplasm of overlapping sites of biliary tract (principal); R57.8 Other shock; E43 Unspecified severe protein-calorie malnutrition; N17.9 Acute kidney failure, unspecified; E87.2 Acidosis; C78.7 Secondary malignant neoplasm of liver and intrahepatic bile duct; I48.91 Unspecified atrial fibrillation; D69.6 Thrombocytopenia, unspecified; K92.2 Gastrointestinal hemorrhage, unspecified; N39.0 Urinary tract infection, site not specified; T45.1X5A Adverse effect of antineoplastic and immunosuppressive drugs, initial encounter; D64.81 Anemia due to antineoplastic chemotherapy; G40.909 Epilepsy, unspecified, not intractable, without status epilepticus; E87.5 Hyperkalemia; B96.20 Unspecified Escherichia coli [E. coli] as the cause of diseases classified elsewhere; Z90.49 Acquired absence of other specified parts of digestive tract; Z98.890 Other specified postprocedural states; Z82.3 Family history of stroke; Z79.899 Other long term (current) drug therapy; Z79.01 Long term (current) use of anticoagulants; Z92.21 Personal history of antineoplastic chemotherapy; Z51.5 Encounter for palliative care; Z68.33 Body mass index [BMI] 33.0-33.9, adult; Z66 Do not resuscitate
CPT/HCPCS: 36415; 36569; 36600; 71010; 71020; 74000; 74176; 74178; 74250; 80048; 80053; 80076; 80184; 80185; 80202; 81001; 82140; 82533; 82550; 82553; 82805; 82947; 82962; 83605; 83735; 83880; 84100; 84132; 84145; 84484; 84550; 85014; 85018; 85025; 85610; 85730; 86850; 86900; 86901; 86920; 87040; 87077; 87086; 87103; 87186; 87449; 87493; 87493-59; 87641; 93005; 96374; 97110-GP; 97116-GP; 97161-GP; 97164-GP; 97530-GP; 99285; A9270-GY; C1751; C8929; C9113; G8978-CK-GP; G8978-CL-GP; G8979-CI-GP; G8979-CK-GP; J0282; J0360; J0692; J1200; J1720; J1940; J2185; J2248; J2405; J2543; J2550; J2997; J3370; J9267; P9016; P9047; Q2009; Q9957; Q9967